=== PATIENT | male | born 1940 | race Caucasian/White ===

== ENCOUNTER 2017-08-21 15:23 | Inpatient (IN) | payer MEDICARE, MEDICAID ==
--- NOTE | 2017-08-21 15:32 | ED Physician Chart ---
ED Chief Complaint/HPI - Patient Information Date Seen:: 08/21/17 Time Seen:: 15:20 Chief Complaint:: Agitation History of Present Illness:: onset x 2 days of agitation and aggressive behavior; no report of SIs, H/As, trauma, neck pain, C/P, SOB, Abd. Pain, A/N/V/D/C, fever, chills, or urinary s/s Historian:: Patient, EMS Review:: Nurse's Note Reviewed, Old Chart Reviewed, EMS run form Reviewed ED Review of Systems - Review of Systems General/Constitutional: No fever, No chills, No weight loss, No weakness, No diaphoresis, No edema, No loss of appetite Skin: No skin lesions, No rash, No bruising Head: No headache, No light-headedness Eyes: No loss of vision, No pain, No diplopia ENT: No earache, No nasal drainage, No sore throat, No tinnitus Neck: No neck pain, No swelling, No thyromegaly, No stiffness, No mass noted Cardio Vascular: No chest pain, No palpitations, No PND, No orthopnea, No edema Pulmonary: No SOB, No cough, No sputum, No wheezing GI: No nausea, No vomiting, No diarrhea, No pain, No melena, No hematochezia, No constipation, No hematemesis G/U: No dysuria, No frequency, No hematuria, No nacturia Musculoskeletal: No bone or joint pain, No back pain, No muscle pain Endocrine: No polyuria, No polydipsia Psychiatric: Prior psych history, Depression, Anxiety, No suicidal ideation, No homicidal ideation, No auditory hallucination, No visual hallucination Hematopoietic: No bruising, No lymphadenopathy Allergic/Immuno: No urticaria, No angioedema Neurological: No syncope, Focal symptoms, No weakness, No paresthesia, No headache, No seizure, No dizziness, Confusion, No vertigo ED Past Medical History - Past Medical History Obtainable: Yes Past Medical History: HTN, CVA/TIA, Dyslipidemia, Dementia, Other (Colon CA) Family History: Diabetes Melitus, HTN Social History: Non Smoker, No Alcohol, No Drug Use, Single, Care Facility Surgical History: other (Colostomy) Psychiatricy History: Depression, Bipolar, Dementia Medication: Reviewed Family Medical History - Family Member Mother Age: 94 Ethnicity: Non- Living Status: Hx Family Cancer: Yes ED Physical Exam - Physical Examination General/Constitutional: Awake, Well-developed, well-nourished, Alert, No distress, GCS 15, Non-toxic appearing, Ambulatory Head: Atraumatic Eyes: Lids, conjuctiva normal, PERRL, EOMI Skin: Nl inspection, No rash, No skin lesions, No ecchymosis, Well hydrated, No lymphadenopathy ENMT: External ears, nose nl, TM canals nl, Nasal exam nl, Lips, teeth, gums nl , Oropharynx nl, Tonsils nl Neck: Nontender, Full ROM w/o pain, No JVD, No nuchal rigidity, No bruit, No mass, No stridor Respiratory: Nl effort/Exclusion, Clear to Auscultation, No Wheeze/Rhonchi/Rales Cardio Vascular: No murmur, gallop, rubs, NL S1 S2, Carotid/Femoral/Distal pulses equal bilaterally Other Cardio Vascular comments:: Irregular Irregular Rhythm GI: No tenderness/rebounding/guarding, No organomegaly, No hernia, Normal BS's, Nondistended, No mass/bruits, No McBurney tenderness : No CVA tenderness Extremities: No tenderness or effusion, Full ROM, normal strength in all extremities, No edema, Normal digits & nails Neuro/Psych: DTR's symmetric, Normal sensory exam, Normal motor strength, Mood normal, Normal gait, No focal deficits Other Neuro/Psych comments:: Disoriented and Confused; no SIs; + Psychomotor Agitation Misc: Normal back, No paraspinal tenderness ED Labs/Radiology/EKG Results - Lab Results Comments:: unremarkable - EKG Interpretations EKG Time:: 15:56 Rate & Rhythm: 127; Atrial Fibrillation Comments:: non-specific st-t changes ED Septic Shock - . Is Septic Shock (SBP<90, OR Lactate>4 mmol\L) present?: No ED Reassessment (Disposition) - Reassessment Reassessment Condition:: Improved - Diagnosis Diagnosis:: Agitation; Bipolar Disorder; Depression; Dementia - Aftercare/Follow up Instructions Aftercare/Follow-Up Instructions:: Counseled pt regarding lab results/diagnosis & need follow up, Counseled pt & family regarding lab results/diagnosis & need follow up - Patient Disposition Discharge/Transfer:: Acute Care w/in this hosp Admitted to:: [facility] Condition at Disposition:: Stable, Improved
[2017-08-21 16:01] LABS: % EOSINOPHILS 0.6 % (0.0-5.0); % LYMPHOCYTES 18.2 % (20.0-50.0); % MONOCYTES 12.5 % (2.0-10.0); % NEUTROPHILS 68.7 % (40.0-80.0); HEMATOCRIT 31.6 % (41.0-60); HEMOGLOBIN 10.7 gm/dL (12-16); MEAN CORPUSCULAR HEMOGLOBIN 28.6 pg (27.0-31.0); MEAN CORPUSCULAR HGB CONC 33.7 pg (28.0-36.0); MEAN PLATELET VOLUME 9.3 fl; MONOCYTE ABSOLUTE 0.7 Th/cmm (0.3-1.0); NEUTROPHILE ABSOLUTE 3.9 Th/cmm (1.8-8.0); PLATELET COUNT 228 Th/cmm (150-400); RED BLOOD COUNT 3.72 Mil/cmm (3.80-5.80); RED CELL DISTRIBUTION WIDTH 18.2 % (11.5-20.0); WHITE BLOOD COUNT 5.6 Th/cmm (4.8-10.8)
[2017-08-21 16:17] LABS: ALB/GLOB RATIO 1.8 (1.0-1.8); ALBUMIN 3.9 gm/dL (4.2-5.5); ALKALINE PHOSPHATASE 78 U/L (34-104); ANION GAP 12.2 (7.0-16.0); BILIRUBIN,TOTAL 1.9 mg/dL (0.3-1.0); BUN - UREA NITROGEN 28 mg/dL (7-25); CALCIUM SERUM 9.9 mg/dL (8.6-10.3); CARBON DIOXIDE 18.4 mEq/L (21.0-31.0); CHLORIDE 109 mEq/L (98-107); CHOLESTEROL 111 mg/dL (<200); CREATININE - SERUM 1.7 mg/dL (0.7-1.3); GLUCOSE 104 mg/dL (70-105); HDL -HIGH DENSITY LIPOPROTEIN 48 mg/dL (23-92); POTASSIUM SERUM 4.6 mEq/L (3.5-5.1); SGOT 16 U/L (13-39); SGPT/ALT 8 U/L (7-52); SODIUM SERUM 135 mEq/L (136-145); TOTAL PROTEIN,SERUM 6.1 gm/dL (6.0-8.3); TRIGLYCERIDES 91 mg/dL (<150)
[2017-08-21 16:26] LABS: ACETAMINOPHEN < 10.0 ug/mL (10.0-30.0); SALICYLATES (ASPIRIN) < 25.0 mg/L (30.0-100.0)
[2017-08-21 17:10] LABS: URINE MICROSCOPIC INDICATED? YES; URINE SOURCE CLEAN C
[2017-08-21 17:16] LABS: URINE BILIRUBIN NEGATIVE (NEGATIVE); URINE BLOOD NEGATIVE (NEGATIVE); URINE GLUCOSE (UA) NEGATIVE (NEGATIVE); URINE KETONE NEGATIVE (NEGATIVE); URINE LEUKOCYTE ESTERASE NEGATIVE (NEGATIVE); URINE NITRATE NEGATIVE (NEGATIVE); URINE PH 5.5 (4.6 - 8.0); URINE PROTEIN NEGATIVE (NEGATIVE); URINE UROBILINOGEN 0.2 E.U./dL (0.2 - 1.0)
[2017-08-21 17:17] LABS: URINE CLARITY CLEAR (CLEAR); URINE COLOR YELLOW
[2017-08-21 17:21] LABS: URINE BACTERIA NONE SEEN /hpf (NONE SEEN); URINE EPITHELIAL CELLS NONE SEEN /lpf (FEW); URINE RBC NONE SEEN /hpf (0-5); URINE WBC NONE SEEN /hpf (0-5)
[2017-08-21 17:27] LABS: AMPHETAMINE URINE NEGATIVE (NEGATIVE); BARBITURATES URINE NEGATIVE (NEGATIVE); BENZODIAZEPINES QUAL URINE NEGATIVE (NEGATIVE); CANNABINOID THC NEGATIVE (NEGATIVE); COCAINE METABOLITE QUAL URINE NEGATIVE (NEGATIVE); METHADONE URINE NEGATIVE (NEGATIVE); METHAMPHETAMINES QUAL URINE NEGATIVE (NEGATIVE); OPIATES (MORPHINE) QUAL. URINE NEGATIVE (NEGATIVE); PHENCYCLIDINE (PCP) URINE NEGATIVE (NEGATIVE); TRICYCLICS (TCA) QUAL. URINE NEGATIVE (NEGATIVE)
[2017-08-21 21:59] LABS: A1C % 5.7 % (4.0-6.0)
[2017-08-21 22:24] VITALS: BP 112/75
[2017-08-21] MEDS ORDERED: Magnesium Hydroxide (MOM) 30 mL UDC PO PRN (22:35)
[2017-08-22] MEDS ORDERED: SACUBITRIL PO SCH (09:00)
[2017-08-22] MEDS ORDERED: VALSARTAN PO SCH (09:00)
[2017-08-22] MEDS: Pantoprazole 40 mg EC Tab PO SCH (16:41)
--- NOTE | 2017-08-22 20:20 | History & Physical ---
ADMIT DATE: HISTORY OF PRESENT ILLNESS: This is a 77-year-old male with long history of hypertension, hyperlipidemia, paroxysmal atrial fibrillation, chronic anemia, dementia, CA of colon, benign prostatic hypertrophy, admitted to [facility] under Dr. Flores's service for treatment. The patient has been very psychotic. No chest pain, no shortness of breath, no fever, no chills. PAST MEDICAL HISTORY: Significant for hypertension, paroxysmal atrial fibrillation, chronic anemia, CA of colon, dementia, hyperlipidemia, benign prostatic hypertrophy. PAST SURGICAL HISTORY: Hemicolectomy with colostomy placement. ALLERGIES: HE IS ALLERGIC TO FLOMAX, NORVASC, LISINOPRIL, LORATADINE. SOCIAL HISTORY: No smoking, no alcohol, no drug. FAMILY HISTORY: Noncontributory. REVIEW OF SYSTEMS: RENAL SYSTEM: No history of chronic renal disorder. CARDIOVASCULAR SYSTEM: History of hypertension, atrial fibrillation. ENDOCRINE SYSTEM: No diabetes or thyroid problem. GASTROINTESTINAL SYSTEM: No upper or lower gastrointestinal bleed. He has history of CA of colon and bowel resection with colostomy placement. MUSCULOSKELETAL SYSTEM: No muscular dystrophy. HEMATOLOGIC SYSTEM: He has chronic anemia. GENITOURINARY SYSTEM: He has benign prostatic hypertrophy. PHYSICAL EXAMINATION: GENERAL: He is awake, alert, mildly confused. VITAL SIGNS: His temperature is 98.4, heart rate 94, blood pressure 119/60. HEENT: Normocephalic. Pupils reactive to light and accommodation. Sclerae clear. NECK: Supple. Negative for lymphadenopathy, JVD or bruit. CHEST: Bilaterally normal. No rales, rhonchi or wheezing. HEART: S1, S2 normal. No murmur, gallop or rub. ABDOMEN: Soft, bowel sounds positive. EXTREMITIES: No edema. NEUROLOGIC: He is awake, alert, mildly confused. No focal, motor or sensory deficit. LABORATORY DATA: White blood is 5.6, hemoglobin 10.7, hematocrit 31.6, platelets were 228. Sodium 135, potassium 4.6, BUN 28, creatinine 0.7. ASSESSMENT: 1. Hypertension. 2. Atrial fibrillation. 3. Anemia. 4. Hyperlipidemia. 5. Benign prostatic hypertrophy. 6. Dementia. PLAN: The patient in the hospital under Dr. Flores's service. MEDICAL PROBLEMS TO BE ADDRESSED DURING HOSPITALIZATION: Dementia, psychosis. MEDICAL PROBLEM TO BE ADDRESSED AT DISCHARGE: Hypertension, anemia, benign prostatic hypertrophy, hyperlipidemia. The patient is medically stable for activity. Thank you, Dr. Flores, for asking me to see your patient. JOB# [id number]
--- NOTE | 2017-08-23 00:32 | Psychosocial Evaluation ---
DATE OF SERVICE: 08/22/2017 JUSTIFICATION FOR HOSPITALIZATION: Agitation, aggressive behaviors and suicidal. CHIEF COMPLAINT: "My son wants to have me dumped, I was suicidal." HISTORY OF PRESENT ILLNESS: A 77-year-old male who apparently was making some suicidal gestures at [place], brought in, states he is schizophrenic, depressed, upset with son, fixated on son, talking about losing his daniel in God, talking about "traditional religions", jumping from one topic to next, difficult to redirect, not a good historian, but states he is depressed and hopeless. PAST PSYCHIATRIC HISTORY: He notes he has seen psychiatrists in the past. He states he has schizophrenia and depression. FAMILY HISTORY: Noncontributory. SOCIAL HISTORY: Born in [place], [place], after 31 years of marriage. in 1998. States he has a son. Also notes that he had a daughter, but daughter in infancy. Denies drugs. No alcohol, no tobacco. Currently residing at [place]. MEDICATIONS: Reviewed. MEDICAL HISTORY: Reviewed. MENTAL STATUS EXAMINATION: Stated age, fair eye contact. Speech highly pressured, rambling. Mood: "Not good". Affect upset. Thought processes were disorganized, tangential, highly difficult to control the conversation. The patient is suicidal. No HI. Seems to be paranoid and delusional. Insight and judgment: Diminished. PROVISIONAL DIAGNOSES: Schizophrenia, mood, unspecified. UNDER MEDICAL: Please see full H and P. ESTIMATED LENGTH OF STAY: 5-7 days. ASSESSMENT: The patient is requiring inpatient hospitalization, paranoid, suicidal. PLAN: We will initiate antipsychotic medications. TREATMENT PLAN: Includes group as well as milieu therapy. CONDITIONS FOR DISCHARGE: Improved mood, improved affect, cessation of any SI, better coping, better control of any psychotic symptoms. JOB# [id number]
[2017-08-23] MEDS: Pantoprazole 40 mg EC Tab PO SCH (06:34)
--- NOTE | 2017-08-23 20:02 | Internal Medicine Prog Note ---
Internal Medicine Subjective - Subjective Service Date: 08/23/17 Patient seen and examined:: with staff Patient is:: awake, verbal, talking, confused Per staff patient has:: no adverse event (HE DENIES ANY PAIN OR SOB) Internal Medicine Objective - Results Result Diagrams: 08/21/17 15:35 08/21/17 15:35 Recent Labs: Laboratory Last Values WBC 5.6 Th/cmm (4.8-10.8) 08/21/17 15:35 RBC 3.72 Mil/cmm (3.80-5.80) L 08/21/17 15:35 Hgb 10.7 gm/dL (12-16) L 08/21/17 15:35 Hct 31.6 % (41.0-60) L 08/21/17 15:35 MCV 85.0 fl (80-99) 08/21/17 15:35 MCH 28.6 pg (27.0-31.0) 08/21/17 15:35 MCHC Differential 33.7 pg (28.0-36.0) 08/21/17 15:35 RDW 18.2 % (11.5-20.0) 08/21/17 15:35 Plt Count 228 Th/cmm (150-400) 08/21/17 15:35 MPV 9.3 fl 08/21/17 15:35 Neutrophils % 68.7 % (40.0-80.0) 08/21/17 15:35 Lymphocytes % 18.2 % (20.0-50.0) L 08/21/17 15:35 Monocytes % 12.5 % (2.0-10.0) H 08/21/17 15:35 Eosinophils % 0.6 % (0.0-5.0) 08/21/17 15:35 Basophils % 0.0 % (0.0-2.0) 08/21/17 15:35 Sodium 135 mEq/L (136-145) L 08/21/17 15:35 Potassium 4.6 mEq/L (3.5-5.1) 08/21/17 15:35 Chloride 109 mEq/L (98-107) H 08/21/17 15:35 Carbon Dioxide 18.4 mEq/L (21.0-31.0) L 08/21/17 15:35 Anion Gap 12.2 (7.0-16.0) 08/21/17 15:35 BUN 28 mg/dL (7-25) H 08/21/17 15:35 Creatinine 1.7 mg/dL (0.7-1.3) H 08/21/17 15:35 Est GFR ( Amer) TNP 08/21/17 15:35 Est GFR (Non-Af Amer) TNP 08/21/17 15:35 BUN/Creatinine Ratio 16.5 08/21/17 15:35 Glucose 104 mg/dL (70-105) 08/21/17 15:35 Hemoglobin A1c % 5.7 % (4.0-6.0) 08/21/17 15:35 Calcium 9.9 mg/dL (8.6-10.3) 08/21/17 15:35 Total Bilirubin 1.9 mg/dL (0.3-1.0) H 08/21/17 15:35 AST 16 U/L (13-39) 08/21/17 15:35 ALT 8 U/L (7-52) 08/21/17 15:35 Alkaline Phosphatase 78 U/L (34-104) 08/21/17 15:35 Total Protein 6.1 gm/dL (6.0-8.3) 08/21/17 15:35 Albumin 3.9 gm/dL (4.2-5.5) L 08/21/17 15:35 Globulin 2.2 gm/dL 08/21/17 15:35 Albumin/Globulin Ratio 1.8 (1.0-1.8) 08/21/17 15:35 Triglycerides 91 mg/dL (<150) 08/21/17 15:35 Cholesterol 111 mg/dL (<200) 08/21/17 15:35 LDL Cholesterol Direct 53 mg/dL (75-193) L 08/21/17 15:35 HDL Cholesterol 48 mg/dL (23-92) 08/21/17 15:35 TSH 0.55 uIU/ml (0.34-5.60) 08/21/17 15:35 Urine Source CLEAN C 08/21/17 16:44 Urine Color YELLOW 08/21/17 16:44 Urine Clarity CLEAR (CLEAR) 08/21/17 16:44 Urine pH 5.5 (4.6 - 8.0) 08/21/17 16:44 Ur Specific [place] 1.015 (1.005-1.030) 08/21/17 16:44 Urine Protein NEGATIVE mg/dL (NEGATIVE) 08/21/17 16:44 Urine Glucose (UA) NEGATIVE mg/dL (NEGATIVE) 02 16:44 Urine Ketones NEGATIVE mg/dL (NEGATIVE) 02 16:44 Urine Blood NEGATIVE (NEGATIVE) 02 16:44 Urine Nitrate NEGATIVE (NEGATIVE) 08/21/17 16:44 Urine Bilirubin NEGATIVE (NEGATIVE) 02 16:44 Urine Urobilinogen 0.2 E.U./dL (0.2 - 1.0) 02 16:44 Ur Leukocyte Esterase NEGATIVE (NEGATIVE) 08/21/17 16:44 Urine RBC NONE SEEN /hpf (0-5) 02 16:44 Urine WBC NONE SEEN /hpf (0-5) 02 16:44 Ur Epithelial Cells NONE SEEN /lpf (FEW) 08/21/17 16:44 Urine Bacteria NONE SEEN /hpf (NONE SEEN) 08/21/17 16:44 Salicylates < 25.0 mg/L (30.0-100.0) L 08/21/17 15:35 Urine Opiates Screen NEGATIVE (NEGATIVE) 08/21/17 16:44 Urine Methadone Screen NEGATIVE (NEGATIVE) 08/21/17 16:44 Acetaminophen < 10.0 ug/mL (10.0-30.0) L 08/21/17 15:35 Ur Barbiturates Screen NEGATIVE (NEGATIVE) 08/21/17 16:44 Ur Tricyclics Screen NEGATIVE (NEGATIVE) 08/21/17 16:44 Ur Phencyclidine Scrn NEGATIVE (NEGATIVE) 08/21/17 16:44 Amphetamines Screen NEGATIVE (NEGATIVE) 08/21/17 16:44 U Methamphetamines Scrn NEGATIVE (NEGATIVE) 08/21/17 16:44 U Benzodiazepines Scrn NEGATIVE (NEGATIVE) 08/21/17 16:44 U Cocaine Metab Screen NEGATIVE (NEGATIVE) 08/21/17 16:44 U Cannabinoids Screen NEGATIVE (NEGATIVE) 08/21/17 16:44 Ethyl Alcohol < 10 mg/dL (0-10) 08/21/17 15:35 RPR NONREACTIVE (NONREACTIVE) 08/21/17 15:35 - Physical Exam Vitals and I&O: Vital Signs Temp 97.4 F 08/23/17 14:00 Pulse 88 08/23/17 17:31 Resp 18 08/23/17 14:00 BP 105/61 08/23/17 17:31 Pulse Ox 97 08/23/17 14:00 Intake & Output 08/23/17 08/23/1718 06:59 18:59 06:59 Intake Total 240 1800 Balance 240 1800 Intake: Oral 240 1800 Other: # Voids 1 4 Active Medications: Current Medications Acetaminophen (Tylenol) 650 mg PO Q4HR PRN PRN Reason: Pain or Fever >101 Stop: 10/20/17 22:34 Atorvastatin Calcium (Lipitor) 80 mg PO HS ELVIN PRN Reason: Protocol Stop: 10/21/17 20:59 Last Admin: 08/22/17 21:40 Dose: 80 mg Docusate Sodium (Colace) 100 mg PO DAILY PRN PRN Reason: Constipation Stop: 10/20/17 22:34 Finasteride (Proscar) 5 mg PO DAILY ELVIN PRN Reason: Protocol Stop: 10/21/17 08:59 Last Admin: 08/23/17 09:15 Dose: 5 mg Lorazepam (Ativan) 0.5 mg PO Q4HR PRN; Protocol PRN Reason: Anxiety Stop: 09/20/17 20:14 Last Admin: 08/23/17 09:15 Dose: 0.5 mg Magnesium Hydroxide (Milk Of Magnesia) 30 ml PO DAILY PRN PRN Reason: Constipation Stop: 10/20/17 22:34 Metoprolol Tartrate (Lopressor) 50 mg PO BID ELVIN Stop: 10/21/17 08:59 Last Admin: 08/23/17 17:31 Dose: Not Given Miscellaneous (Sacubitril/Valsartan [Entresto 49 Mg-51 Mg Tablet]) 1 tab PO BID ELVIN Stop: 10/21/17 08:59 Pantoprazole Sodium (Protonix) 40 mg PO QDAC ELVIN Stop: 10/21/17 16:29 Last Admin: 08/23/17 06:34 Dose: 40 mg Risperidone (Risperdal) 0.5 mg PO BID ELVIN PRN Reason: Protocol Stop: 10/21/17 16:59 Last Admin: 08/23/17 17:31 Dose: 0.5 mg Rivaroxaban (Xarelto) 15 mg PO DAILY [facility] Stop: 10/21/17 16:59 Last Admin: 08/23/17 09:14 Dose: 15 mg Spironolactone (Aldactone) 25 mg PO DAILY [facility] Stop: 10/21/17 08:59 Last Admin: 08/23/17 09:15 Dose: 25 mg Zolpidem Tartrate (Ambien) 5 mg PO HS PRN PRN Reason: Insomnia Stop: 10/20/17 22:40 Last Admin: 08/22/17 21:40 Dose: 5 mg General: demented HEENT: NC/AT, PERRLA, EOMI, anicteric sclerae, throat clear Neck: Supple, No JVD, No thyromegaly, No LAD Lungs: CTAB Cardiovascular: RRR, Normal S1, Normal S2, without murmur Abdomen: non-tender, non-distended Extremities: clear Neurological: no change Internal Medicine Assmt/Plan - Assessment Assessment: 1.A.FIB. 2.HYPERLIPIDEMIA. 3.ANEMIA. 4.BPH. 5.DEMENTIA - Plan Plan: CONTINUE ON CURRENT MEDICATION AND DIET.
--- NOTE | 2017-08-23 23:38 | Progress Notes ---
DATE: 08/23/2017 SUBJECTIVE: The patient in the hospital, agitated, aggressive behavior, suicidal. On [id number], the patient remains irritable, upset, refusing interview, does not want to talk to me, told me yesterday he was suicidal and was paranoid. He remains quite paranoid and occlusive. Staff noting he remains at times unruly requiring redirection, prompting. MEDICATIONS: Reviewed including doses and frequencies. ASSESSMENT: The patient remains symptomatic, still with ongoing psychotic symptoms, highly depressed, withdrawn. PLAN: We will continue to monitor. Continue antipsychotic medications. We will attempt to follow up when the patient more amenable to interview. JOB# [id number]
--- NOTE | 2017-08-24 07:51 | Progress Notes ---
DATE: 08/24/2017 SUBJECTIVE: The patient admitted in the hospital. He was apparently quite agitated, suicidal, paranoid, told me that he was paranoid. On [id number], the patient states he feels calmer. He states he is in touch with the son and his son told him that he can go back home. This has not been confirmed. I called son yesterday, his voice mailbox was full. I was unable to leave a message. The patient still rambling, still isolative, but no longer talking about suicide as much. He states he has a diagnosis of Parkinson's disease, but I am not seeing any symptoms. ASSESSMENT: The patient remains symptomatic, still rambling, still with evidence of disorganized thought processes. PLAN: We will again try to contact son. Continue low dose Risperdal. The patient does seem to be showing some improvement. JOB# [id number]
[2017-08-24] MEDS: Pantoprazole 40 mg EC Tab PO SCH (09:35)
--- NOTE | 2017-08-24 19:37 | Internal Medicine Prog Note ---
Internal Medicine Subjective - Subjective Service Date: 08/24/17 Patient seen and examined:: with staff Patient is:: awake, verbal, talking, confused Per staff patient has:: no adverse event (HE DENIES ANY PAIN OR SOB) Internal Medicine Objective - Results Result Diagrams: 08/21/17 15:35 08/21/17 15:35 Recent Labs: Laboratory Last Values WBC 5.6 Th/cmm (4.8-10.8) 08/21/17 15:35 RBC 3.72 Mil/cmm (3.80-5.80) L 08/21/17 15:35 Hgb 10.7 gm/dL (12-16) L 08/21/17 15:35 Hct 31.6 % (41.0-60) L 08/21/17 15:35 MCV 85.0 fl (80-99) 08/21/17 15:35 MCH 28.6 pg (27.0-31.0) 08/21/17 15:35 MCHC Differential 33.7 pg (28.0-36.0) 08/21/17 15:35 RDW 18.2 % (11.5-20.0) 08/21/17 15:35 Plt Count 228 Th/cmm (150-400) 08/21/17 15:35 MPV 9.3 fl 08/21/17 15:35 Neutrophils % 68.7 % (40.0-80.0) 08/21/17 15:35 Lymphocytes % 18.2 % (20.0-50.0) L 08/21/17 15:35 Monocytes % 12.5 % (2.0-10.0) H 08/21/17 15:35 Eosinophils % 0.6 % (0.0-5.0) 08/21/17 15:35 Basophils % 0.0 % (0.0-2.0) 08/21/17 15:35 Sodium 135 mEq/L (136-145) L 08/21/17 15:35 Potassium 4.6 mEq/L (3.5-5.1) 08/21/17 15:35 Chloride 109 mEq/L (98-107) H 08/21/17 15:35 Carbon Dioxide 18.4 mEq/L (21.0-31.0) L 08/21/17 15:35 Anion Gap 12.2 (7.0-16.0) 08/21/17 15:35 BUN 28 mg/dL (7-25) H 08/21/17 15:35 Creatinine 1.7 mg/dL (0.7-1.3) H 08/21/17 15:35 Est GFR ( Amer) TNP 08/21/17 15:35 Est GFR (Non-Af Amer) TNP 08/21/17 15:35 BUN/Creatinine Ratio 16.5 08/21/17 15:35 Glucose 104 mg/dL (70-105) 08/21/17 15:35 Hemoglobin A1c % 5.7 % (4.0-6.0) 08/21/17 15:35 Calcium 9.9 mg/dL (8.6-10.3) 08/21/17 15:35 Total Bilirubin 1.9 mg/dL (0.3-1.0) H 08/21/17 15:35 AST 16 U/L (13-39) 08/21/17 15:35 ALT 8 U/L (7-52) 08/21/17 15:35 Alkaline Phosphatase 78 U/L (34-104) 08/21/17 15:35 Total Protein 6.1 gm/dL (6.0-8.3) 08/21/17 15:35 Albumin 3.9 gm/dL (4.2-5.5) L 08/21/17 15:35 Globulin 2.2 gm/dL 08/21/17 15:35 Albumin/Globulin Ratio 1.8 (1.0-1.8) 08/21/17 15:35 Triglycerides 91 mg/dL (<150) 08/21/17 15:35 Cholesterol 111 mg/dL (<200) 08/21/17 15:35 LDL Cholesterol Direct 53 mg/dL (75-193) L 08/21/17 15:35 HDL Cholesterol 48 mg/dL (23-92) 08/21/17 15:35 TSH 0.55 uIU/ml (0.34-5.60) 08/21/17 15:35 Urine Source CLEAN C 08/21/17 16:44 Urine Color YELLOW 08/21/17 16:44 Urine Clarity CLEAR (CLEAR) 08/21/17 16:44 Urine pH 5.5 (4.6 - 8.0) 08/21/17 16:44 Ur Specific [place] 1.015 (1.005-1.030) 08/21/17 16:44 Urine Protein NEGATIVE mg/dL (NEGATIVE) 08/21/17 16:44 Urine Glucose (UA) NEGATIVE mg/dL (NEGATIVE) 02 16:44 Urine Ketones NEGATIVE mg/dL (NEGATIVE) 02 16:44 Urine Blood NEGATIVE (NEGATIVE) 02 16:44 Urine Nitrate NEGATIVE (NEGATIVE) 08/21/17 16:44 Urine Bilirubin NEGATIVE (NEGATIVE) 02 16:44 Urine Urobilinogen 0.2 E.U./dL (0.2 - 1.0) 02 16:44 Ur Leukocyte Esterase NEGATIVE (NEGATIVE) 08/21/17 16:44 Urine RBC NONE SEEN /hpf (0-5) 02 16:44 Urine WBC NONE SEEN /hpf (0-5) 02 16:44 Ur Epithelial Cells NONE SEEN /lpf (FEW) 08/21/17 16:44 Urine Bacteria NONE SEEN /hpf (NONE SEEN) 08/21/17 16:44 Salicylates < 25.0 mg/L (30.0-100.0) L 08/21/17 15:35 Urine Opiates Screen NEGATIVE (NEGATIVE) 08/21/17 16:44 Urine Methadone Screen NEGATIVE (NEGATIVE) 08/21/17 16:44 Acetaminophen < 10.0 ug/mL (10.0-30.0) L 08/21/17 15:35 Ur Barbiturates Screen NEGATIVE (NEGATIVE) 08/21/17 16:44 Ur Tricyclics Screen NEGATIVE (NEGATIVE) 08/21/17 16:44 Ur Phencyclidine Scrn NEGATIVE (NEGATIVE) 08/21/17 16:44 Amphetamines Screen NEGATIVE (NEGATIVE) 08/21/17 16:44 U Methamphetamines Scrn NEGATIVE (NEGATIVE) 08/21/17 16:44 U Benzodiazepines Scrn NEGATIVE (NEGATIVE) 08/21/17 16:44 U Cocaine Metab Screen NEGATIVE (NEGATIVE) 08/21/17 16:44 U Cannabinoids Screen NEGATIVE (NEGATIVE) 08/21/17 16:44 Ethyl Alcohol < 10 mg/dL (0-10) 08/21/17 15:35 RPR NONREACTIVE (NONREACTIVE) 08/21/17 15:35 - Physical Exam Vitals and I&O: Vital Signs Temp 97.8 F 08/24/17 16:46 Pulse 100 08/24/17 16:55 Resp 20 08/24/17 16:46 BP 104/58 08/24/17 16:55 Pulse Ox 97 08/24/17 16:46 Intake & Output 08/24/17 08/24/17 08/25/17 06:59 18:59 06:59 Intake Total 120 2040 Balance 120 2040 Intake: Oral 120 2040 Other: # Voids 3 4 Active Medications: Current Medications Acetaminophen (Tylenol) 650 mg PO Q4HR PRN PRN Reason: Pain or Fever >101 Stop: 10/20/17 22:34 Atorvastatin Calcium (Lipitor) 80 mg PO HS ELVIN PRN Reason: Protocol Stop: 10/21/17 20:59 Last Admin: 08/23/17 20:37 Dose: 80 mg Docusate Sodium (Colace) 100 mg PO DAILY PRN PRN Reason: Constipation Stop: 10/20/17 22:34 Finasteride (Proscar) 5 mg PO DAILY ELVIN PRN Reason: Protocol Stop: 10/21/17 08:59 Last Admin: 08/24/17 09:29 Dose: 5 mg Lorazepam (Ativan) 0.5 mg PO Q4HR PRN; Protocol PRN Reason: Anxiety Stop: 09/20/17 20:14 Last Admin: 08/23/17 09:15 Dose: 0.5 mg Magnesium Hydroxide (Milk Of Magnesia) 30 ml PO DAILY PRN PRN Reason: Constipation Stop: 10/20/17 22:34 Metoprolol Tartrate (Lopressor) 50 mg PO BID [facility] Stop: 10/21/17 08:59 Last Admin: 08/24/17 16:55 Dose: 50 mg Miscellaneous (Sacubitril/Valsartan [Entresto 49 Mg-51 Mg Tablet]) 1 tab PO BID [facility] Stop: 10/21/17 08:59 Pantoprazole Sodium (Protonix) 40 mg PO QDAC [facility] Stop: 10/21/17 16:29 Last Admin: 08/24/17 09:35 Dose: 40 mg Risperidone (Risperdal) 0.5 mg PO BID ELVIN PRN Reason: Protocol Stop: 10/21/17 16:59 Last Admin: 08/24/17 16:55 Dose: 0.5 mg Rivaroxaban (Xarelto) 15 mg PO DAILY [facility] Stop: 10/21/17 16:59 Last Admin: 08/24/17 09:30 Dose: 15 mg Spironolactone (Aldactone) 25 mg PO DAILY [facility] Stop: 10/21/17 08:59 Last Admin: 08/24/17 09:30 Dose: 25 mg Zolpidem Tartrate (Ambien) 5 mg PO HS PRN PRN Reason: Insomnia Stop: 10/20/17 22:40 Last Admin: 08/22/17 21:40 Dose: 5 mg General: demented HEENT: NC/AT, PERRLA, EOMI, anicteric sclerae, throat clear Neck: Supple, No JVD, No thyromegaly, No LAD Lungs: CTAB Cardiovascular: RRR, Normal S1, Normal S2, without murmur Abdomen: non-tender, non-distended Extremities: clear Neurological: no change Internal Medicine Assmt/Plan - Assessment Assessment: 1.A.FIB. 2.HYPERLIPIDEMIA. 3.ANEMIA. 4.BPH. 5.DEMENTIA - Plan Plan: CONTINUE ON CURRENT MEDICATION AND DIET.
[2017-08-25] MEDS: Pantoprazole 40 mg EC Tab PO SCH (06:42)
--- NOTE | 2017-08-25 21:14 | Internal Medicine Prog Note ---
Internal Medicine Subjective - Subjective Service Date: 08/25/17 Patient seen and examined:: with staff Patient is:: awake, verbal, talking, confused Per staff patient has:: no adverse event (HE DENIES ANY PAIN OR SOB) Internal Medicine Objective - Results Result Diagrams: 08/21/17 15:35 08/21/17 15:35 Recent Labs: Laboratory Last Values WBC 5.6 Th/cmm (4.8-10.8) 08/21/17 15:35 RBC 3.72 Mil/cmm (3.80-5.80) L 08/21/17 15:35 Hgb 10.7 gm/dL (12-16) L 08/21/17 15:35 Hct 31.6 % (41.0-60) L 08/21/17 15:35 MCV 85.0 fl (80-99) 08/21/17 15:35 MCH 28.6 pg (27.0-31.0) 08/21/17 15:35 MCHC Differential 33.7 pg (28.0-36.0) 08/21/17 15:35 RDW 18.2 % (11.5-20.0) 08/21/17 15:35 Plt Count 228 Th/cmm (150-400) 08/21/17 15:35 MPV 9.3 fl 08/21/17 15:35 Neutrophils % 68.7 % (40.0-80.0) 08/21/17 15:35 Lymphocytes % 18.2 % (20.0-50.0) L 08/21/17 15:35 Monocytes % 12.5 % (2.0-10.0) H 08/21/17 15:35 Eosinophils % 0.6 % (0.0-5.0) 08/21/17 15:35 Basophils % 0.0 % (0.0-2.0) 08/21/17 15:35 Sodium 135 mEq/L (136-145) L 08/21/17 15:35 Potassium 4.6 mEq/L (3.5-5.1) 08/21/17 15:35 Chloride 109 mEq/L (98-107) H 08/21/17 15:35 Carbon Dioxide 18.4 mEq/L (21.0-31.0) L 08/21/17 15:35 Anion Gap 12.2 (7.0-16.0) 08/21/17 15:35 BUN 28 mg/dL (7-25) H 08/21/17 15:35 Creatinine 1.7 mg/dL (0.7-1.3) H 08/21/17 15:35 Est GFR ( Amer) TNP 08/21/17 15:35 Est GFR (Non-Af Amer) TNP 08/21/17 15:35 BUN/Creatinine Ratio 16.5 08/21/17 15:35 Glucose 104 mg/dL (70-105) 08/21/17 15:35 Hemoglobin A1c % 5.7 % (4.0-6.0) 08/21/17 15:35 Calcium 9.9 mg/dL (8.6-10.3) 08/21/17 15:35 Total Bilirubin 1.9 mg/dL (0.3-1.0) H 08/21/17 15:35 AST 16 U/L (13-39) 08/21/17 15:35 ALT 8 U/L (7-52) 08/21/17 15:35 Alkaline Phosphatase 78 U/L (34-104) 08/21/17 15:35 Total Protein 6.1 gm/dL (6.0-8.3) 08/21/17 15:35 Albumin 3.9 gm/dL (4.2-5.5) L 08/21/17 15:35 Globulin 2.2 gm/dL 08/21/17 15:35 Albumin/Globulin Ratio 1.8 (1.0-1.8) 08/21/17 15:35 Triglycerides 91 mg/dL (<150) 08/21/17 15:35 Cholesterol 111 mg/dL (<200) 08/21/17 15:35 LDL Cholesterol Direct 53 mg/dL (75-193) L 08/21/17 15:35 HDL Cholesterol 48 mg/dL (23-92) 08/21/17 15:35 TSH 0.55 uIU/ml (0.34-5.60) 08/21/17 15:35 Urine Source CLEAN C 08/21/17 16:44 Urine Color YELLOW 08/21/17 16:44 Urine Clarity CLEAR (CLEAR) 08/21/17 16:44 Urine pH 5.5 (4.6 - 8.0) 08/21/17 16:44 Ur Specific [place] 1.015 (1.005-1.030) 08/21/17 16:44 Urine Protein NEGATIVE mg/dL (NEGATIVE) 08/21/17 16:44 Urine Glucose (UA) NEGATIVE mg/dL (NEGATIVE) 02 16:44 Urine Ketones NEGATIVE mg/dL (NEGATIVE) 02 16:44 Urine Blood NEGATIVE (NEGATIVE) 02 16:44 Urine Nitrate NEGATIVE (NEGATIVE) 08/21/17 16:44 Urine Bilirubin NEGATIVE (NEGATIVE) 02 16:44 Urine Urobilinogen 0.2 E.U./dL (0.2 - 1.0) 02 16:44 Ur Leukocyte Esterase NEGATIVE (NEGATIVE) 08/21/17 16:44 Urine RBC NONE SEEN /hpf (0-5) 02 16:44 Urine WBC NONE SEEN /hpf (0-5) 02 16:44 Ur Epithelial Cells NONE SEEN /lpf (FEW) 08/21/17 16:44 Urine Bacteria NONE SEEN /hpf (NONE SEEN) 08/21/17 16:44 Salicylates < 25.0 mg/L (30.0-100.0) L 08/21/17 15:35 Urine Opiates Screen NEGATIVE (NEGATIVE) 08/21/17 16:44 Urine Methadone Screen NEGATIVE (NEGATIVE) 08/21/17 16:44 Acetaminophen < 10.0 ug/mL (10.0-30.0) L 08/21/17 15:35 Ur Barbiturates Screen NEGATIVE (NEGATIVE) 08/21/17 16:44 Ur Tricyclics Screen NEGATIVE (NEGATIVE) 08/21/17 16:44 Ur Phencyclidine Scrn NEGATIVE (NEGATIVE) 08/21/17 16:44 Amphetamines Screen NEGATIVE (NEGATIVE) 08/21/17 16:44 U Methamphetamines Scrn NEGATIVE (NEGATIVE) 08/21/17 16:44 U Benzodiazepines Scrn NEGATIVE (NEGATIVE) 08/21/17 16:44 U Cocaine Metab Screen NEGATIVE (NEGATIVE) 08/21/17 16:44 U Cannabinoids Screen NEGATIVE (NEGATIVE) 08/21/17 16:44 Ethyl Alcohol < 10 mg/dL (0-10) 08/21/17 15:35 RPR NONREACTIVE (NONREACTIVE) 08/21/17 15:35 - Physical Exam Vitals and I&O: Vital Signs Temp 98.1 F 08/25/17 20:26 Pulse 92 08/25/17 20:26 Resp 18 08/25/17 20:26 BP 108/63 08/25/17 20:26 Pulse Ox 95 08/25/17 20:26 Intake & Output 08/25/17 08/25/17 08/26/17 06:59 18:59 06:59 Intake Total 180 900 240 Balance 180 900 240 Intake: Oral 180 900 240 Other: # Voids 2 4 1 # Bowel Movements 1 1 Active Medications: Current Medications Acetaminophen (Tylenol) 650 mg PO Q4HR PRN PRN Reason: Pain or Fever >101 Stop: 10/20/17 22:34 Atorvastatin Calcium (Lipitor) 80 mg PO HS [facility] PRN Reason: Protocol Stop: 10/21/17 20:59 Last Admin: 08/25/17 20:54 Dose: 80 mg Docusate Sodium (Colace) 100 mg PO DAILY PRN PRN Reason: Constipation Stop: 10/20/17 22:34 Finasteride (Proscar) 5 mg PO DAILY [facility] PRN Reason: Protocol Stop: 10/21/17 08:59 Last Admin: 08/25/17 10:00 Dose: 5 mg Lorazepam (Ativan) 0.5 mg PO Q4HR PRN; Protocol PRN Reason: Anxiety Stop: 09/20/17 20:14 Last Admin: 08/23/17 09:15 Dose: 0.5 mg Magnesium Hydroxide (Milk Of Magnesia) 30 ml PO DAILY PRN PRN Reason: Constipation Stop: 10/20/17 22:34 Metoprolol Tartrate (Lopressor) 50 mg PO BID [facility] Stop: 10/21/17 08:59 Last Admin: 08/25/17 18:52 Dose: Not Given Miscellaneous (Sacubitril/Valsartan [Entresto 49 Mg-51 Mg Tablet]) 1 tab PO BID [facility] Stop: 10/21/17 08:59 Pantoprazole Sodium (Protonix) 40 mg PO QDAC [facility] Stop: 10/21/17 16:29 Last Admin: 08/25/17 06:42 Dose: 40 mg Risperidone (Risperdal) 0.5 mg PO BID [facility] PRN Reason: Protocol Stop: 10/21/17 16:59 Last Admin: 08/25/17 17:52 Dose: 0.5 mg Rivaroxaban (Xarelto) 15 mg PO DAILY [facility] Stop: 10/21/17 16:59 Last Admin: 08/25/17 10:00 Dose: 15 mg Spironolactone (Aldactone) 25 mg PO DAILY [facility] Stop: 10/21/17 08:59 Last Admin: 08/25/17 10:00 Dose: 25 mg Zolpidem Tartrate (Ambien) 5 mg PO HS PRN PRN Reason: Insomnia Stop: 10/20/17 22:40 Last Admin: 08/25/17 20:54 Dose: 5 mg General: demented HEENT: NC/AT, PERRLA, EOMI, anicteric sclerae, throat clear Neck: Supple, No JVD, No thyromegaly, No LAD Lungs: CTAB Cardiovascular: RRR, Normal S1, Normal S2, without murmur Abdomen: non-tender, non-distended Extremities: clear Neurological: no change Internal Medicine Assmt/Plan - Assessment Assessment: 1.A.FIB. 2.HYPERLIPIDEMIA. 3.ANEMIA. 4.BPH. 5.DEMENTIA - Plan Plan: CONTINUE ON CURRENT MEDICATION AND DIET.
[2017-08-26] MEDS: Pantoprazole 40 mg EC Tab PO SCH (06:50)
--- NOTE | 2017-08-26 07:45 | Progress Notes ---
DATE: 08/25/2017 SUBJECTIVE: The patient is currently in the hospital, he was apparently suicidal, paranoid, tried to walk into the traffic, still attesting to depressed mood. States he has no hope that he will be able to go back to the place he came from. He is still somewhat rambling on exam, seems somewhat confused and disoriented. His son called me. I will attempt to call the son again. The patient is very anxious, worried, states he did not sleep well last night. ASSESSMENT: The patient remains symptomatic, still rambling, seemingly disoriented, but denying any SI. PLAN: We will continue to monitor given his ongoing hopelessness and despair. There are really no overt safety concerns. [facility]# [id number]
--- NOTE | 2017-08-26 21:01 | Internal Medicine Prog Note ---
Internal Medicine Subjective - Subjective Service Date: 08/26/17 Patient seen and examined:: with staff Patient is:: awake, verbal, talking, confused Per staff patient has:: no adverse event (HE DENIES ANY PAIN OR SOB) Internal Medicine Objective - Results Result Diagrams: 08/21/17 15:35 08/21/17 15:35 Recent Labs: Laboratory Last Values WBC 5.6 Th/cmm (4.8-10.8) 08/21/17 15:35 RBC 3.72 Mil/cmm (3.80-5.80) L 08/21/17 15:35 Hgb 10.7 gm/dL (12-16) L 08/21/17 15:35 Hct 31.6 % (41.0-60) L 08/21/17 15:35 MCV 85.0 fl (80-99) 08/21/17 15:35 MCH 28.6 pg (27.0-31.0) 08/21/17 15:35 MCHC Differential 33.7 pg (28.0-36.0) 08/21/17 15:35 RDW 18.2 % (11.5-20.0) 08/21/17 15:35 Plt Count 228 Th/cmm (150-400) 08/21/17 15:35 MPV 9.3 fl 08/21/17 15:35 Neutrophils % 68.7 % (40.0-80.0) 08/21/17 15:35 Lymphocytes % 18.2 % (20.0-50.0) L 08/21/17 15:35 Monocytes % 12.5 % (2.0-10.0) H 08/21/17 15:35 Eosinophils % 0.6 % (0.0-5.0) 08/21/17 15:35 Basophils % 0.0 % (0.0-2.0) 08/21/17 15:35 Sodium 135 mEq/L (136-145) L 08/21/17 15:35 Potassium 4.6 mEq/L (3.5-5.1) 08/21/17 15:35 Chloride 109 mEq/L (98-107) H 08/21/17 15:35 Carbon Dioxide 18.4 mEq/L (21.0-31.0) L 08/21/17 15:35 Anion Gap 12.2 (7.0-16.0) 08/21/17 15:35 BUN 28 mg/dL (7-25) H 08/21/17 15:35 Creatinine 1.7 mg/dL (0.7-1.3) H 08/21/17 15:35 Est GFR ( Amer) TNP 08/21/17 15:35 Est GFR (Non-Af Amer) TNP 08/21/17 15:35 BUN/Creatinine Ratio 16.5 08/21/17 15:35 Glucose 104 mg/dL (70-105) 08/21/17 15:35 Hemoglobin A1c % 5.7 % (4.0-6.0) 08/21/17 15:35 Calcium 9.9 mg/dL (8.6-10.3) 08/21/17 15:35 Total Bilirubin 1.9 mg/dL (0.3-1.0) H 08/21/17 15:35 AST 16 U/L (13-39) 08/21/17 15:35 ALT 8 U/L (7-52) 08/21/17 15:35 Alkaline Phosphatase 78 U/L (34-104) 08/21/17 15:35 Total Protein 6.1 gm/dL (6.0-8.3) 08/21/17 15:35 Albumin 3.9 gm/dL (4.2-5.5) L 08/21/17 15:35 Globulin 2.2 gm/dL 08/21/17 15:35 Albumin/Globulin Ratio 1.8 (1.0-1.8) 08/21/17 15:35 Triglycerides 91 mg/dL (<150) 08/21/17 15:35 Cholesterol 111 mg/dL (<200) 08/21/17 15:35 LDL Cholesterol Direct 53 mg/dL (75-193) L 08/21/17 15:35 HDL Cholesterol 48 mg/dL (23-92) 08/21/17 15:35 TSH 0.55 uIU/ml (0.34-5.60) 08/21/17 15:35 Urine Source CLEAN C 08/21/17 16:44 Urine Color YELLOW 08/21/17 16:44 Urine Clarity CLEAR (CLEAR) 08/21/17 16:44 Urine pH 5.5 (4.6 - 8.0) 08/21/17 16:44 Ur Specific [place] 1.015 (1.005-1.030) 08/21/17 16:44 Urine Protein NEGATIVE mg/dL (NEGATIVE) 08/21/17 16:44 Urine Glucose (UA) NEGATIVE mg/dL (NEGATIVE) 02 16:44 Urine Ketones NEGATIVE mg/dL (NEGATIVE) 02 16:44 Urine Blood NEGATIVE (NEGATIVE) 02 16:44 Urine Nitrate NEGATIVE (NEGATIVE) 08/21/17 16:44 Urine Bilirubin NEGATIVE (NEGATIVE) 02 16:44 Urine Urobilinogen 0.2 E.U./dL (0.2 - 1.0) 02 16:44 Ur Leukocyte Esterase NEGATIVE (NEGATIVE) 08/21/17 16:44 Urine RBC NONE SEEN /hpf (0-5) 02 16:44 Urine WBC NONE SEEN /hpf (0-5) 02 16:44 Ur Epithelial Cells NONE SEEN /lpf (FEW) 08/21/17 16:44 Urine Bacteria NONE SEEN /hpf (NONE SEEN) 08/21/17 16:44 Salicylates < 25.0 mg/L (30.0-100.0) L 08/21/17 15:35 Urine Opiates Screen NEGATIVE (NEGATIVE) 08/21/17 16:44 Urine Methadone Screen NEGATIVE (NEGATIVE) 08/21/17 16:44 Acetaminophen < 10.0 ug/mL (10.0-30.0) L 08/21/17 15:35 Ur Barbiturates Screen NEGATIVE (NEGATIVE) 08/21/17 16:44 Ur Tricyclics Screen NEGATIVE (NEGATIVE) 08/21/17 16:44 Ur Phencyclidine Scrn NEGATIVE (NEGATIVE) 08/21/17 16:44 Amphetamines Screen NEGATIVE (NEGATIVE) 08/21/17 16:44 U Methamphetamines Scrn NEGATIVE (NEGATIVE) 08/21/17 16:44 U Benzodiazepines Scrn NEGATIVE (NEGATIVE) 08/21/17 16:44 U Cocaine Metab Screen NEGATIVE (NEGATIVE) 08/21/17 16:44 U Cannabinoids Screen NEGATIVE (NEGATIVE) 08/21/17 16:44 Ethyl Alcohol < 10 mg/dL (0-10) 08/21/17 15:35 RPR NONREACTIVE (NONREACTIVE) 08/21/17 15:35 - Physical Exam Vitals and I&O: Vital Signs Temp 97.7 F 08/26/17 20:14 Pulse 107 08/26/17 20:14 Resp 19 08/26/17 20:14 BP 97/55 08/26/17 20:14 Pulse Ox 96 08/26/17 20:14 Intake & Output 08/26/17 08/26/17 08/27/17 06:59 18:59 06:59 Intake Total 240 900 120 Balance 240 900 120 Intake: Oral 240 900 120 Other: # Voids 3 4 3 # Bowel Movements 1 1 1 Active Medications: Current Medications Acetaminophen (Tylenol) 650 mg PO Q4HR PRN PRN Reason: Pain or Fever >101 Stop: 10/20/17 22:34 Atorvastatin Calcium (Lipitor) 80 mg PO HS [facility] PRN Reason: Protocol Stop: 10/21/17 20:59 Last Admin: 08/25/17 20:54 Dose: 80 mg Docusate Sodium (Colace) 100 mg PO DAILY PRN PRN Reason: Constipation Stop: 10/20/17 22:34 Finasteride (Proscar) 5 mg PO DAILY [facility] PRN Reason: Protocol Stop: 10/21/17 08:59 Last Admin: 08/26/17 08:40 Dose: 5 mg Lorazepam (Ativan) 0.5 mg PO Q4HR PRN; Protocol PRN Reason: Anxiety Stop: 09/20/17 20:14 Last Admin: 08/23/17 09:15 Dose: 0.5 mg Magnesium Hydroxide (Milk Of Magnesia) 30 ml PO DAILY PRN PRN Reason: Constipation Stop: 10/20/17 22:34 Metoprolol Tartrate (Lopressor) 50 mg PO BID [facility] Stop: 10/21/17 08:59 Last Admin: 08/26/17 17:51 Dose: 50 mg Miscellaneous (Sacubitril/Valsartan [Entresto 49 Mg-51 Mg Tablet]) 1 tab PO BID [facility] Stop: 10/21/17 08:59 Pantoprazole Sodium (Protonix) 40 mg PO QDAC [facility] Stop: 10/21/17 16:29 Last Admin: 08/26/17 06:50 Dose: 40 mg Risperidone (Risperdal) 1 mg PO BID [facility] PRN Reason: Protocol Stop: 04/14/18 16:59 Last Admin: 08/26/17 17:52 Dose: 1 mg Rivaroxaban (Xarelto) 15 mg PO DAILY [facility] Stop: 10/21/17 16:59 Last Admin: 08/26/17 08:39 Dose: 15 mg Spironolactone (Aldactone) 25 mg PO DAILY [facility] Stop: 10/21/17 08:59 Last Admin: 08/26/17 08:40 Dose: 25 mg Zolpidem Tartrate (Ambien) 5 mg PO HS PRN PRN Reason: Insomnia Stop: 10/20/17 22:40 Last Admin: 08/25/17 20:54 Dose: 5 mg General: demented HEENT: NC/AT, PERRLA, EOMI, anicteric sclerae, throat clear Neck: Supple, No JVD, No thyromegaly, No LAD Lungs: CTAB Cardiovascular: RRR, Normal S1, Normal S2, without murmur Abdomen: non-tender, non-distended Extremities: clear Neurological: no change Internal Medicine Assmt/Plan - Assessment Assessment: 1.A.FIB. 2.HYPERLIPIDEMIA. 3.ANEMIA. 4.BPH. 5.DEMENTIA - Plan Plan: CONTINUE ON CURRENT MEDICATION AND DIET.
[2017-08-27] MEDS: Pantoprazole 40 mg EC Tab PO SCH (06:44)
--- NOTE | 2017-08-27 06:53 | Progress Notes ---
DATE: 08/26/2017 SUBJECTIVE: The patient is currently in the hospital. He was suicidal, paranoid. On [id number], still fixated on his son, wants to go home, son is trying to work on alternative placement. The patient is rambling on exam, pressured, ruminative, still depressed, withdrawn, but no overt SI. Sleeping fairly well, eating well. He is pretty reclusive and isolative. MEDICATIONS: Reviewed. ASSESSMENT: The patient remains symptomatic, still paranoid, rambling on exam, fearful. PLAN: We will continue to monitor, son noting no evidence of Parkinson's disease, no diagnosis of Parkinson's disease. I spoke with son yesterday I will be increasing Risperdal today. [facility]# [id number]
--- NOTE | 2017-08-27 20:17 | Internal Medicine Prog Note ---
Internal Medicine Subjective - Subjective Service Date: 08/27/17 Patient seen and examined:: with staff Patient is:: awake, verbal, talking, confused Per staff patient has:: no adverse event (HE DENIES ANY PAIN OR SOB) Internal Medicine Objective - Results Result Diagrams: 08/21/17 15:35 08/21/17 15:35 Recent Labs: Laboratory Last Values WBC 5.6 Th/cmm (4.8-10.8) 08/21/17 15:35 RBC 3.72 Mil/cmm (3.80-5.80) L 08/21/17 15:35 Hgb 10.7 gm/dL (12-16) L 08/21/17 15:35 Hct 31.6 % (41.0-60) L 08/21/17 15:35 MCV 85.0 fl (80-99) 08/21/17 15:35 MCH 28.6 pg (27.0-31.0) 08/21/17 15:35 MCHC Differential 33.7 pg (28.0-36.0) 08/21/17 15:35 RDW 18.2 % (11.5-20.0) 08/21/17 15:35 Plt Count 228 Th/cmm (150-400) 08/21/17 15:35 MPV 9.3 fl 08/21/17 15:35 Neutrophils % 68.7 % (40.0-80.0) 08/21/17 15:35 Lymphocytes % 18.2 % (20.0-50.0) L 08/21/17 15:35 Monocytes % 12.5 % (2.0-10.0) H 08/21/17 15:35 Eosinophils % 0.6 % (0.0-5.0) 08/21/17 15:35 Basophils % 0.0 % (0.0-2.0) 08/21/17 15:35 Sodium 135 mEq/L (136-145) L 08/21/17 15:35 Potassium 4.6 mEq/L (3.5-5.1) 08/21/17 15:35 Chloride 109 mEq/L (98-107) H 08/21/17 15:35 Carbon Dioxide 18.4 mEq/L (21.0-31.0) L 08/21/17 15:35 Anion Gap 12.2 (7.0-16.0) 08/21/17 15:35 BUN 28 mg/dL (7-25) H 08/21/17 15:35 Creatinine 1.7 mg/dL (0.7-1.3) H 08/21/17 15:35 Est GFR ( Amer) TNP 08/21/17 15:35 Est GFR (Non-Af Amer) TNP 08/21/17 15:35 BUN/Creatinine Ratio 16.5 08/21/17 15:35 Glucose 104 mg/dL (70-105) 08/21/17 15:35 Hemoglobin A1c % 5.7 % (4.0-6.0) 08/21/17 15:35 Calcium 9.9 mg/dL (8.6-10.3) 08/21/17 15:35 Total Bilirubin 1.9 mg/dL (0.3-1.0) H 08/21/17 15:35 AST 16 U/L (13-39) 08/21/17 15:35 ALT 8 U/L (7-52) 08/21/17 15:35 Alkaline Phosphatase 78 U/L (34-104) 08/21/17 15:35 Total Protein 6.1 gm/dL (6.0-8.3) 08/21/17 15:35 Albumin 3.9 gm/dL (4.2-5.5) L 08/21/17 15:35 Globulin 2.2 gm/dL 08/21/17 15:35 Albumin/Globulin Ratio 1.8 (1.0-1.8) 08/21/17 15:35 Triglycerides 91 mg/dL (<150) 08/21/17 15:35 Cholesterol 111 mg/dL (<200) 08/21/17 15:35 LDL Cholesterol Direct 53 mg/dL (75-193) L 08/21/17 15:35 HDL Cholesterol 48 mg/dL (23-92) 08/21/17 15:35 TSH 0.55 uIU/ml (0.34-5.60) 08/21/17 15:35 Urine Source CLEAN C 08/21/17 16:44 Urine Color YELLOW 08/21/17 16:44 Urine Clarity CLEAR (CLEAR) 08/21/17 16:44 Urine pH 5.5 (4.6 - 8.0) 08/21/17 16:44 Ur Specific [place] 1.015 (1.005-1.030) 08/21/17 16:44 Urine Protein NEGATIVE mg/dL (NEGATIVE) 08/21/17 16:44 Urine Glucose (UA) NEGATIVE mg/dL (NEGATIVE) 02 16:44 Urine Ketones NEGATIVE mg/dL (NEGATIVE) 02 16:44 Urine Blood NEGATIVE (NEGATIVE) 02 16:44 Urine Nitrate NEGATIVE (NEGATIVE) 08/21/17 16:44 Urine Bilirubin NEGATIVE (NEGATIVE) 02 16:44 Urine Urobilinogen 0.2 E.U./dL (0.2 - 1.0) 02 16:44 Ur Leukocyte Esterase NEGATIVE (NEGATIVE) 08/21/17 16:44 Urine RBC NONE SEEN /hpf (0-5) 02 16:44 Urine WBC NONE SEEN /hpf (0-5) 02 16:44 Ur Epithelial Cells NONE SEEN /lpf (FEW) 08/21/17 16:44 Urine Bacteria NONE SEEN /hpf (NONE SEEN) 08/21/17 16:44 Salicylates < 25.0 mg/L (30.0-100.0) L 08/21/17 15:35 Urine Opiates Screen NEGATIVE (NEGATIVE) 08/21/17 16:44 Urine Methadone Screen NEGATIVE (NEGATIVE) 08/21/17 16:44 Acetaminophen < 10.0 ug/mL (10.0-30.0) L 08/21/17 15:35 Ur Barbiturates Screen NEGATIVE (NEGATIVE) 08/21/17 16:44 Ur Tricyclics Screen NEGATIVE (NEGATIVE) 08/21/17 16:44 Ur Phencyclidine Scrn NEGATIVE (NEGATIVE) 08/21/17 16:44 Amphetamines Screen NEGATIVE (NEGATIVE) 08/21/17 16:44 U Methamphetamines Scrn NEGATIVE (NEGATIVE) 08/21/17 16:44 U Benzodiazepines Scrn NEGATIVE (NEGATIVE) 08/21/17 16:44 U Cocaine Metab Screen NEGATIVE (NEGATIVE) 08/21/17 16:44 U Cannabinoids Screen NEGATIVE (NEGATIVE) 08/21/17 16:44 Ethyl Alcohol < 10 mg/dL (0-10) 08/21/17 15:35 RPR NONREACTIVE (NONREACTIVE) 08/21/17 15:35 - Physical Exam Vitals and I&O: Vital Signs Temp 97.3 F 08/27/17 14:00 Pulse 98 08/27/17 16:32 Resp 20 08/27/17 14:00 BP 102/68 08/27/17 16:32 Pulse Ox 96 08/27/17 14:00 Intake & Output 08/27/17 08/27/17 08/28/17 06:59 18:59 06:59 Intake Total 120 1800 Output Total 100 Balance 120 1700 Intake: Oral 120 1800 Output: Stool 100 Other: # Voids 3 4 # Bowel Movements 1 Stool Characteristics Soft Soft Active Medications: Current Medications Acetaminophen (Tylenol) 650 mg PO Q4HR PRN PRN Reason: Pain or Fever >101 Stop: 10/20/17 22:34 Atorvastatin Calcium (Lipitor) 80 mg PO HS [facility] PRN Reason: Protocol Stop: 10/21/17 20:59 Last Admin: 08/26/17 21:25 Dose: 80 mg Docusate Sodium (Colace) 100 mg PO DAILY PRN PRN Reason: Constipation Stop: 10/20/17 22:34 Finasteride (Proscar) 5 mg PO DAILY [facility] PRN Reason: Protocol Stop: 10/21/17 08:59 Last Admin: 08/27/17 08:47 Dose: 5 mg Lorazepam (Ativan) 0.5 mg PO Q4HR PRN; Protocol PRN Reason: Anxiety Stop: 09/20/17 20:14 Last Admin: 08/23/17 09:15 Dose: 0.5 mg Magnesium Hydroxide (Milk Of Magnesia) 30 ml PO DAILY PRN PRN Reason: Constipation Stop: 10/20/17 22:34 Metoprolol Tartrate (Lopressor) 50 mg PO BID [facility] Stop: 10/21/17 08:59 Last Admin: 08/27/17 16:32 Dose: Not Given Miscellaneous (Sacubitril/Valsartan [Entresto 49 Mg-51 Mg Tablet]) 1 tab PO BID [facility] Stop: 10/21/17 08:59 Pantoprazole Sodium (Protonix) 40 mg PO QDAC [facility] Stop: 10/21/17 16:29 Last Admin: 08/27/17 06:44 Dose: 40 mg Risperidone (Risperdal) 1 mg PO BID [facility] PRN Reason: Protocol Stop: 10/25/17 16:59 Last Admin: 08/27/17 16:32 Dose: 1 mg Rivaroxaban (Xarelto) 15 mg PO DAILY [facility] Stop: 10/21/17 16:59 Last Admin: 08/27/17 08:41 Dose: 15 mg Spironolactone (Aldactone) 25 mg PO DAILY [facility] Stop: 10/21/17 08:59 Last Admin: 08/27/17 08:44 Dose: 25 mg Zolpidem Tartrate (Ambien) 5 mg PO HS PRN PRN Reason: Insomnia Stop: 10/20/17 22:40 Last Admin: 08/25/17 20:54 Dose: 5 mg General: demented HEENT: NC/AT, PERRLA, EOMI, anicteric sclerae, throat clear Neck: Supple, No JVD, No thyromegaly, No LAD Lungs: CTAB Cardiovascular: RRR, Normal S1, Normal S2, without murmur Abdomen: non-tender, non-distended Extremities: clear Neurological: no change Internal Medicine Assmt/Plan - Assessment Assessment: 1.A.FIB. 2.HYPERLIPIDEMIA. 3.ANEMIA. 4.BPH. 5.DEMENTIA - Plan Plan: CONTINUE ON CURRENT MEDICATION AND DIET.
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
[2017-08-28] MEDS: Pantoprazole 40 mg EC Tab PO SCH (06:47)
--- NOTE | 2017-08-28 17:16 | Internal Medicine Prog Note ---
Internal Medicine Subjective - Subjective Service Date: 08/28/17 Patient is:: awake, verbal, talking, confused Per staff patient has:: no adverse event (HE DENIES ANY PAIN OR SOB) Internal Medicine Objective - Results Result Diagrams: 08/21/17 15:35 08/21/17 15:35 Recent Labs: Laboratory Last Values WBC 5.6 Th/cmm (4.8-10.8) 08/21/17 15:35 RBC 3.72 Mil/cmm (3.80-5.80) L 08/21/17 15:35 Hgb 10.7 gm/dL (12-16) L 08/21/17 15:35 Hct 31.6 % (41.0-60) L 08/21/17 15:35 MCV 85.0 fl (80-99) 08/21/17 15:35 MCH 28.6 pg (27.0-31.0) 08/21/17 15:35 MCHC Differential 33.7 pg (28.0-36.0) 08/21/17 15:35 RDW 18.2 % (11.5-20.0) 08/21/17 15:35 Plt Count 228 Th/cmm (150-400) 08/21/17 15:35 MPV 9.3 fl 08/21/17 15:35 Neutrophils % 68.7 % (40.0-80.0) 08/21/17 15:35 Lymphocytes % 18.2 % (20.0-50.0) L 08/21/17 15:35 Monocytes % 12.5 % (2.0-10.0) H 08/21/17 15:35 Eosinophils % 0.6 % (0.0-5.0) 08/21/17 15:35 Basophils % 0.0 % (0.0-2.0) 08/21/17 15:35 Sodium 135 mEq/L (136-145) L 08/21/17 15:35 Potassium 4.6 mEq/L (3.5-5.1) 08/21/17 15:35 Chloride 109 mEq/L (98-107) H 08/21/17 15:35 Carbon Dioxide 18.4 mEq/L (21.0-31.0) L 08/21/17 15:35 Anion Gap 12.2 (7.0-16.0) 08/21/17 15:35 BUN 28 mg/dL (7-25) H 08/21/17 15:35 Creatinine 1.7 mg/dL (0.7-1.3) H 08/21/17 15:35 Est GFR ( Amer) TNP 08/21/17 15:35 Est GFR (Non-Af Amer) TNP 08/21/17 15:35 BUN/Creatinine Ratio 16.5 08/21/17 15:35 Glucose 104 mg/dL (70-105) 08/21/17 15:35 Hemoglobin A1c % 5.7 % (4.0-6.0) 08/21/17 15:35 Calcium 9.9 mg/dL (8.6-10.3) 08/21/17 15:35 Total Bilirubin 1.9 mg/dL (0.3-1.0) H 08/21/17 15:35 AST 16 U/L (13-39) 08/21/17 15:35 ALT 8 U/L (7-52) 08/21/17 15:35 Alkaline Phosphatase 78 U/L (34-104) 08/21/17 15:35 Total Protein 6.1 gm/dL (6.0-8.3) 08/21/17 15:35 Albumin 3.9 gm/dL (4.2-5.5) L 08/21/17 15:35 Globulin 2.2 gm/dL 08/21/17 15:35 Albumin/Globulin Ratio 1.8 (1.0-1.8) 08/21/17 15:35 Triglycerides 91 mg/dL (<150) 08/21/17 15:35 Cholesterol 111 mg/dL (<200) 08/21/17 15:35 LDL Cholesterol Direct 53 mg/dL (75-193) L 08/21/17 15:35 HDL Cholesterol 48 mg/dL (23-92) 08/21/17 15:35 TSH 0.55 uIU/ml (0.34-5.60) 08/21/17 15:35 Urine Source CLEAN C 08/21/17 16:44 Urine Color YELLOW 08/21/17 16:44 Urine Clarity CLEAR (CLEAR) 08/21/17 16:44 Urine pH 5.5 (4.6 - 8.0) 08/21/17 16:44 Ur Specific [place] 1.015 (1.005-1.030) 08/21/17 16:44 Urine Protein NEGATIVE mg/dL (NEGATIVE) 08/21/17 16:44 Urine Glucose (UA) NEGATIVE mg/dL (NEGATIVE) 08/21/17 16:44 Urine Ketones NEGATIVE mg/dL (NEGATIVE) 08/21/17 16:44 Urine Blood NEGATIVE (NEGATIVE) 08/21/17 16:44 Urine Nitrate NEGATIVE (NEGATIVE) 08/21/17 16:44 Urine Bilirubin NEGATIVE (NEGATIVE) 08/21/17 16:44 Urine Urobilinogen 0.2 E.U./dL (0.2 - 1.0) 02 16:44 Ur Leukocyte Esterase NEGATIVE (NEGATIVE) 08/21/17 16:44 Urine RBC NONE SEEN /hpf (0-5) 08/21/17 16:44 Urine WBC NONE SEEN /hpf (0-5) 02 16:44 Ur Epithelial Cells NONE SEEN /lpf (FEW) 08/21/17 16:44 Urine Bacteria NONE SEEN /hpf (NONE SEEN) 08/21/17 16:44 Salicylates < 25.0 mg/L (30.0-100.0) L 08/21/17 15:35 Urine Opiates Screen NEGATIVE (NEGATIVE) 08/21/17 16:44 Urine Methadone Screen NEGATIVE (NEGATIVE) 08/21/17 16:44 Acetaminophen < 10.0 ug/mL (10.0-30.0) L 08/21/17 15:35 Ur Barbiturates Screen NEGATIVE (NEGATIVE) 08/21/17 16:44 Ur Tricyclics Screen NEGATIVE (NEGATIVE) 08/21/17 16:44 Ur Phencyclidine Scrn NEGATIVE (NEGATIVE) 08/21/17 16:44 Amphetamines Screen NEGATIVE (NEGATIVE) 08/21/17 16:44 U Methamphetamines Scrn NEGATIVE (NEGATIVE) 08/21/17 16:44 U Benzodiazepines Scrn NEGATIVE (NEGATIVE) 08/21/17 16:44 U Cocaine Metab Screen NEGATIVE (NEGATIVE) 08/21/17 16:44 U Cannabinoids Screen NEGATIVE (NEGATIVE) 08/21/17 16:44 Ethyl Alcohol < 10 mg/dL (0-10) 08/21/17 15:35 RPR NONREACTIVE (NONREACTIVE) 08/21/17 15:35 - Physical Exam Vitals and I&O: Vital Signs Temp 98.2 F 08/28/17 06:53 Pulse 98 08/28/17 16:24 Resp 20 08/28/17 06:53 BP 116/90 08/28/17 16:24 Pulse Ox 97 08/28/17 06:53 Intake & Output 08/27/17 08/28/17 08/28/17 18:59 06:59 18:59 Intake Total 1800 240 Output Total 100 Balance 1700 240 Intake: Oral 1800 240 Output: Stool 100 Other: # Voids 4 3 Stool Characteristics Soft Soft Soft Formed Brown Active Medications: Current Medications Acetaminophen (Tylenol) 650 mg PO Q4HR PRN PRN Reason: Pain or Fever >101 Stop: 10/20/17 22:34 Atorvastatin Calcium (Lipitor) 80 mg PO HS ELVIN PRN Reason: Protocol Stop: 10/21/17 20:59 Last Admin: 08/27/17 21:54 Dose: 80 mg Docusate Sodium (Colace) 100 mg PO DAILY PRN PRN Reason: Constipation Stop: 10/20/17 22:34 Finasteride (Proscar) 5 mg PO DAILY ELVIN PRN Reason: Protocol Stop: 10/21/17 08:59 Last Admin: 08/28/17 08:18 Dose: 5 mg Lorazepam (Ativan) 0.5 mg PO Q4HR PRN; Protocol PRN Reason: Anxiety Stop: 09/20/17 20:14 Last Admin: 08/23/17 09:15 Dose: 0.5 mg Magnesium Hydroxide (Milk Of Magnesia) 30 ml PO DAILY PRN PRN Reason: Constipation Stop: 10/20/17 22:34 Metoprolol Tartrate (Lopressor) 50 mg PO BID ELVIN Stop: 10/21/17 08:59 Last Admin: 08/28/17 16:24 Dose: 50 mg Miscellaneous (Sacubitril/Valsartan [Entresto 49 Mg-51 Mg Tablet]) 1 tab PO BID ELVIN Stop: 10/21/17 08:59 Pantoprazole Sodium (Protonix) 40 mg PO QDAC ELVIN Stop: 10/21/17 16:29 Last Admin: 08/28/17 06:47 Dose: 40 mg Risperidone (Risperdal) 1 mg PO BID ELVIN PRN Reason: Protocol Stop: 10/25/17 16:59 Last Admin: 08/28/17 16:44 Dose: 1 mg Rivaroxaban (Xarelto) 15 mg PO DAILY [facility] Stop: 10/21/17 16:59 Last Admin: 08/28/17 08:20 Dose: 15 mg Spironolactone (Aldactone) 25 mg PO DAILY [facility] Stop: 10/21/17 08:59 Last Admin: 08/28/17 08:19 Dose: 25 mg Zolpidem Tartrate (Ambien) 5 mg PO HS PRN PRN Reason: Insomnia Stop: 10/20/17 22:40 Last Admin: 08/25/17 20:54 Dose: 5 mg General: demented HEENT: NC/AT, PERRLA, EOMI, anicteric sclerae, throat clear Neck: Supple, No JVD, No thyromegaly, No LAD Lungs: CTAB Cardiovascular: RRR, Normal S1, Normal S2, without murmur Abdomen: non-tender, non-distended Extremities: clear Neurological: no change Internal Medicine Assmt/Plan - Assessment Assessment: 1.A.FIB. 2.HYPERLIPIDEMIA. 3.ANEMIA. 4.BPH. 5.DEMENTIA - Plan Plan: CONTINUE ON CURRENT MEDICATION AND DIET. Nutritional Asmnt/Malnutr-PDOC - Dietary Evaluation Malnutrition Findings (Please click <Entered> for more info): Nutritional Asmnt/Malnutrition Start: 08/28/17 13: 29 Text: Status: Complete Freq: Document 08/28/17 13:29 [email or web address] (Rec: 08/28/17 13:31 [email or web address]) Nutritional Asmnt/Malnutrition Patient General Information Nutritional Screening Low Risk Diagnosis depression Pertinent Medical Hx/Surgical Hx HTN, HLD, a fib, anemia, demential, colon ca, BPH Subjective Information pt depressed but eating 75-100 % of meals Current Diet Order/ Nutrition Support regular Patient / S.O Not Indicated Pertinent Medications colace, MOM, protonix, xarelto Pertinent Labs 08/21 Na: 135, BUN: 28, cr: 1.7 Nutritional Hx/Data Height 1.68 m Height (Calculated Centimeters) 167.6 Current Weight (lbs) 73.936 kg Weight (Calculated Kilograms) 73.9 Weight (Calculated Grams) 78143.6 [place] Body Weight 142 % [place] Body Weight 115 Body Mass Index (BMI) 26.3 GI Symptoms GI Symptoms None Last BM 08/27 Difficult in: None Skin Integrity/Comment: intact, no edema Current %PO Good (75-100%) Estimated Nutritional Goals BEE in Kcals: Using Current wt Calories/Kcals/Kg 25-30 Kcals Calculated 0668-4920 Protein: Using Current wt Protein g/k Protein Calculated 74 Fluid: ml 9877-4900 mL (1 ml/kcal) Nutritional Problem No current Nutrition Prob Problem n/a Etiology n/a Signs/Symptoms: n/a Malnutrition Alert Is there a minimum of two criteria No selected? Query Text:Check all the applicable criteria. A minimum of two criteria are recommended for diagnosis of either severe or non-severe malnutrition. Malnutrition Related to Morbid Obesity Malnutrition related to morbid obesity No Intervention/Recommendation Comments 1. Continue regular diet as ordered Expected Outcomes/Goals Expected Outcomes/Goals po intake >50% monitor wts, labs, skin, pO Intake
--- NOTE | 2017-08-28 21:21 | Progress Notes ---
DATE: 08/28/2017 SUBJECTIVE: The patient is currently in the hospital, paranoid, isolative, reclusive, had been suicidal, no longer talking about suicide, but he does remain upset, desperate, hopeful to go back home, but there are concerns about his ability to care for himself. Son is trying to find him placement. The patient is calmer today. No agitation. We have no confirm discharge plan at this time and there are concerns about grave disability and has ability to care for his basic needs. ASSESSMENT: The patient remains symptomatic, still with ongoing paranoia, no longer talking about suicidal, but still appearing depressed and withdrawn, reclusive. PLAN: We will continue to monitor, coordinate care with social work regarding safe discharge plan and good psychiatric followup. JOB# [id number]
[2017-08-29] MEDS: Pantoprazole 40 mg EC Tab PO SCH (07:00)
--- NOTE | 2017-08-29 20:06 | Internal Medicine Prog Note ---
Internal Medicine Subjective - Subjective Service Date: 08/29/17 Patient seen and examined:: with staff Patient is:: awake, verbal, talking, confused Per staff patient has:: no adverse event (HE DENIES ANY PAIN OR SOB) Internal Medicine Objective - Results Result Diagrams: 08/21/17 15:35 08/21/17 15:35 Recent Labs: Laboratory Last Values WBC 5.6 Th/cmm (4.8-10.8) 08/21/17 15:35 RBC 3.72 Mil/cmm (3.80-5.80) L 08/21/17 15:35 Hgb 10.7 gm/dL (12-16) L 08/21/17 15:35 Hct 31.6 % (41.0-60) L 08/21/17 15:35 MCV 85.0 fl (80-99) 08/21/17 15:35 MCH 28.6 pg (27.0-31.0) 08/21/17 15:35 MCHC Differential 33.7 pg (28.0-36.0) 08/21/17 15:35 RDW 18.2 % (11.5-20.0) 08/21/17 15:35 Plt Count 228 Th/cmm (150-400) 08/21/17 15:35 MPV 9.3 fl 08/21/17 15:35 Neutrophils % 68.7 % (40.0-80.0) 08/21/17 15:35 Lymphocytes % 18.2 % (20.0-50.0) L 08/21/17 15:35 Monocytes % 12.5 % (2.0-10.0) H 08/21/17 15:35 Eosinophils % 0.6 % (0.0-5.0) 08/21/17 15:35 Basophils % 0.0 % (0.0-2.0) 08/21/17 15:35 Sodium 135 mEq/L (136-145) L 08/21/17 15:35 Potassium 4.6 mEq/L (3.5-5.1) 08/21/17 15:35 Chloride 109 mEq/L (98-107) H 08/21/17 15:35 Carbon Dioxide 18.4 mEq/L (21.0-31.0) L 08/21/17 15:35 Anion Gap 12.2 (7.0-16.0) 08/21/17 15:35 BUN 28 mg/dL (7-25) H 08/21/17 15:35 Creatinine 1.7 mg/dL (0.7-1.3) H 08/21/17 15:35 Est GFR ( Amer) TNP 08/21/17 15:35 Est GFR (Non-Af Amer) TNP 08/21/17 15:35 BUN/Creatinine Ratio 16.5 08/21/17 15:35 Glucose 104 mg/dL (70-105) 08/21/17 15:35 Hemoglobin A1c % 5.7 % (4.0-6.0) 08/21/17 15:35 Calcium 9.9 mg/dL (8.6-10.3) 08/21/17 15:35 Total Bilirubin 1.9 mg/dL (0.3-1.0) H 08/21/17 15:35 AST 16 U/L (13-39) 08/21/17 15:35 ALT 8 U/L (7-52) 08/21/17 15:35 Alkaline Phosphatase 78 U/L (34-104) 08/21/17 15:35 Total Protein 6.1 gm/dL (6.0-8.3) 08/21/17 15:35 Albumin 3.9 gm/dL (4.2-5.5) L 08/21/17 15:35 Globulin 2.2 gm/dL 08/21/17 15:35 Albumin/Globulin Ratio 1.8 (1.0-1.8) 08/21/17 15:35 Triglycerides 91 mg/dL (<150) 08/21/17 15:35 Cholesterol 111 mg/dL (<200) 08/21/17 15:35 LDL Cholesterol Direct 53 mg/dL (75-193) L 08/21/17 15:35 HDL Cholesterol 48 mg/dL (23-92) 08/21/17 15:35 TSH 0.55 uIU/ml (0.34-5.60) 08/21/17 15:35 Urine Source CLEAN C 08/21/17 16:44 Urine Color YELLOW 08/21/17 16:44 Urine Clarity CLEAR (CLEAR) 08/21/17 16:44 Urine pH 5.5 (4.6 - 8.0) 08/21/17 16:44 Ur Specific [place] 1.015 (1.005-1.030) 08/21/17 16:44 Urine Protein NEGATIVE mg/dL (NEGATIVE) 08/21/17 16:44 Urine Glucose (UA) NEGATIVE mg/dL (NEGATIVE) 02 16:44 Urine Ketones NEGATIVE mg/dL (NEGATIVE) 02 16:44 Urine Blood NEGATIVE (NEGATIVE) 02 16:44 Urine Nitrate NEGATIVE (NEGATIVE) 08/21/17 16:44 Urine Bilirubin NEGATIVE (NEGATIVE) 02 16:44 Urine Urobilinogen 0.2 E.U./dL (0.2 - 1.0) 02 16:44 Ur Leukocyte Esterase NEGATIVE (NEGATIVE) 08/21/17 16:44 Urine RBC NONE SEEN /hpf (0-5) 02 16:44 Urine WBC NONE SEEN /hpf (0-5) 02 16:44 Ur Epithelial Cells NONE SEEN /lpf (FEW) 08/21/17 16:44 Urine Bacteria NONE SEEN /hpf (NONE SEEN) 08/21/17 16:44 Salicylates < 25.0 mg/L (30.0-100.0) L 08/21/17 15:35 Urine Opiates Screen NEGATIVE (NEGATIVE) 08/21/17 16:44 Urine Methadone Screen NEGATIVE (NEGATIVE) 08/21/17 16:44 Acetaminophen < 10.0 ug/mL (10.0-30.0) L 08/21/17 15:35 Ur Barbiturates Screen NEGATIVE (NEGATIVE) 08/21/17 16:44 Ur Tricyclics Screen NEGATIVE (NEGATIVE) 08/21/17 16:44 Ur Phencyclidine Scrn NEGATIVE (NEGATIVE) 08/21/17 16:44 Amphetamines Screen NEGATIVE (NEGATIVE) 08/21/17 16:44 U Methamphetamines Scrn NEGATIVE (NEGATIVE) 08/21/17 16:44 U Benzodiazepines Scrn NEGATIVE (NEGATIVE) 08/21/17 16:44 U Cocaine Metab Screen NEGATIVE (NEGATIVE) 08/21/17 16:44 U Cannabinoids Screen NEGATIVE (NEGATIVE) 08/21/17 16:44 Ethyl Alcohol < 10 mg/dL (0-10) 08/21/17 15:35 RPR NONREACTIVE (NONREACTIVE) 08/21/17 15:35 - Physical Exam Vitals and I&O: Vital Signs Temp 97.6 F 08/29/17 15:41 Pulse 100 08/29/17 17:10 Resp 20 08/29/17 15:41 BP 107/68 08/29/17 17:10 Pulse Ox 96 08/29/17 15:41 Intake & Output 08/29/17 08/29/17 08/30/17 06:59 18:59 06:59 Intake Total 120 1200 Balance 120 1200 Intake: Oral 120 1200 Other: # Voids 3 # Bowel Movements 2 Stool Characteristics Soft Soft Brown Brown Active Medications: Current Medications Acetaminophen (Tylenol) 650 mg PO Q4HR PRN PRN Reason: Pain or Fever >101 Stop: 10/20/17 22:34 Atorvastatin Calcium (Lipitor) 80 mg PO HS ELVIN PRN Reason: Protocol Stop: 10/21/17 20:59 Last Admin: 08/28/17 21:30 Dose: 80 mg Benztropine Mesylate (Cogentin) 0.5 mg PO BID ELVIN Stop: 10/28/17 16:59 Last Admin: 08/29/17 17:27 Dose: 0.5 mg Docusate Sodium (Colace) 100 mg PO DAILY PRN PRN Reason: Constipation Stop: 10/20/17 22:34 Finasteride (Proscar) 5 mg PO DAILY ELVIN PRN Reason: Protocol Stop: 10/21/17 08:59 Last Admin: 08/29/17 08:19 Dose: 5 mg Lorazepam (Ativan) 0.5 mg PO Q4HR PRN; Protocol PRN Reason: Anxiety Stop: 09/20/17 20:14 Last Admin: 08/29/17 08:19 Dose: 0.5 mg Magnesium Hydroxide (Milk Of Magnesia) 30 ml PO DAILY PRN PRN Reason: Constipation Stop: 10/20/17 22:34 Metoprolol Tartrate (Lopressor) 50 mg PO BID ELVIN Stop: 10/21/17 08:59 Last Admin: 08/29/17 17:10 Dose: Not Given Miscellaneous (Sacubitril/Valsartan [Entresto 49 Mg-51 Mg Tablet]) 1 tab PO BID ELVIN Stop: 10/21/17 08:59 Pantoprazole Sodium (Protonix) 40 mg PO QDAC ELVIN Stop: 10/21/17 16:29 Last Admin: 08/29/17 07:00 Dose: 40 mg Risperidone (Risperdal) 1 mg PO BID ELVIN PRN Reason: Protocol Stop: 10/25/17 16:59 Last Admin: 08/29/17 17:27 Dose: 1 mg Rivaroxaban (Xarelto) 15 mg PO DAILY [facility] Stop: 10/21/17 16:59 Last Admin: 08/29/17 08:19 Dose: 15 mg Spironolactone (Aldactone) 25 mg PO DAILY ELVIN Stop: 10/21/17 08:59 Last Admin: 08/29/17 08:19 Dose: 25 mg Zolpidem Tartrate (Ambien) 5 mg PO HS PRN PRN Reason: Insomnia Stop: 10/20/17 22:40 Last Admin: 08/28/17 21:30 Dose: 5 mg General: demented HEENT: NC/AT, PERRLA, EOMI, anicteric sclerae, throat clear Neck: Supple, No JVD, No thyromegaly, No LAD Lungs: CTAB Cardiovascular: RRR, Normal S1, Normal S2, without murmur Abdomen: non-tender, non-distended Extremities: clear Neurological: no change Internal Medicine Assmt/Plan - Assessment Assessment: 1.A.FIB. 2.HYPERLIPIDEMIA. 3.ANEMIA. 4.BPH. 5.DEMENTIA - Plan Plan: CONTINUE ON CURRENT MEDICATION AND DIET. Nutritional Asmnt/Malnutr-PDOC - Dietary Evaluation Malnutrition Findings (Please click <Entered> for more info): Nutritional Asmnt/Malnutrition Start: 08/28/17 13: 29 Text: Status: Complete Freq: Document 08/28/17 13:29 [email or web address] (Rec: 08/28/17 13:31 [email or web address]) Nutritional Asmnt/Malnutrition Patient General Information Nutritional Screening Low Risk Diagnosis depression Pertinent Medical Hx/Surgical Hx HTN, HLD, a fib, anemia, demential, colon ca, BPH Subjective Information pt depressed but eating 75-100 % of meals Current Diet Order/ Nutrition Support regular Patient / S.O Not Indicated Pertinent Medications colace, MOM, protonix, xarelto Pertinent Labs 08/21 Na: 135, BUN: 28, cr: 1.7 Nutritional Hx/Data Height 1.68 m Height (Calculated Centimeters) 167.6 Current Weight (lbs) 73.936 kg Weight (Calculated Kilograms) 73.9 Weight (Calculated Grams) 78682.6 [place] Body Weight 142 % [place] Body Weight 115 Body Mass Index (BMI) 26.3 GI Symptoms GI Symptoms None Last BM 08/27 Difficult in: None Skin Integrity/Comment: intact, no edema Current %PO Good (75-100%) Estimated Nutritional Goals BEE in Kcals: Using Current wt Calories/Kcals/Kg 25-30 Kcals Calculated 2914-5675 Protein: Using Current wt Protein g/k Protein Calculated 74 Fluid: ml 7311-1442 mL (1 ml/kcal) Nutritional Problem No current Nutrition Prob Problem n/a Etiology n/a Signs/Symptoms: n/a Malnutrition Alert Is there a minimum of two criteria No selected? Query Text:Check all the applicable criteria. A minimum of two criteria are recommended for diagnosis of either severe or non-severe malnutrition. Malnutrition Related to Morbid Obesity Malnutrition related to morbid obesity No Intervention/Recommendation Comments 1. Continue regular diet as ordered Expected Outcomes/Goals Expected Outcomes/Goals po intake >50% monitor wts, labs, skin, pO Intake
--- NOTE | 2017-08-30 02:41 | Progress Notes ---
DATE: 08/29/2017 SUBJECTIVE: The patient is currently in the hospital, paranoid, isolative, occlusive on [id number], he is calmer, somewhat more accepting of placement. He remains intrusive; however, ruminative, rambling, still attesting to some paranoia, sounds other people are trying to harm him, but he is noting these thoughts are improving and he is eating fairly well. Sleeping is somewhat interrupted. It is unclear what his discharge plan is at this time. There are concerns about grave disability. MEDICATIONS: Reviewed. ASSESSMENT: The patient remains symptomatic, occlusive, isolative, ongoing paranoia. PLAN: We will continue to monitor. We will coordinate care and try to confirm placement. Given recent dose increases of medications, we will hold the current dose. [facility]# [id number]
[2017-08-30] MEDS: Pantoprazole 40 mg EC Tab PO SCH (06:30)
--- NOTE | 2017-08-30 21:08 | General Progress Note ---
Subjective - Review of Systems Service Date: 08/30/17 Subjective: resting comfortably alert and communicative Objective - Results Result Diagrams: 08/21/17 15:35 08/21/17 15:35 Recent Labs: Laboratory Last Values WBC 5.6 Th/cmm (4.8-10.8) 08/21/17 15:35 RBC 3.72 Mil/cmm (3.80-5.80) L 08/21/17 15:35 Hgb 10.7 gm/dL (12-16) L 08/21/17 15:35 Hct 31.6 % (41.0-60) L 08/21/17 15:35 MCV 85.0 fl (80-99) 08/21/17 15:35 MCH 28.6 pg (27.0-31.0) 08/21/17 15:35 MCHC Differential 33.7 pg (28.0-36.0) 08/21/17 15:35 RDW 18.2 % (11.5-20.0) 08/21/17 15:35 Plt Count 228 Th/cmm (150-400) 08/21/17 15:35 MPV 9.3 fl 08/21/17 15:35 Neutrophils % 68.7 % (40.0-80.0) 08/21/17 15:35 Lymphocytes % 18.2 % (20.0-50.0) L 08/21/17 15:35 Monocytes % 12.5 % (2.0-10.0) H 08/21/17 15:35 Eosinophils % 0.6 % (0.0-5.0) 08/21/17 15:35 Basophils % 0.0 % (0.0-2.0) 08/21/17 15:35 Sodium 135 mEq/L (136-145) L 08/21/17 15:35 Potassium 4.6 mEq/L (3.5-5.1) 08/21/17 15:35 Chloride 109 mEq/L (98-107) H 08/21/17 15:35 Carbon Dioxide 18.4 mEq/L (21.0-31.0) L 08/21/17 15:35 Anion Gap 12.2 (7.0-16.0) 08/21/17 15:35 BUN 28 mg/dL (7-25) H 08/21/17 15:35 Creatinine 1.7 mg/dL (0.7-1.3) H 08/21/17 15:35 Est GFR ( Amer) TNP 08/21/17 15:35 Est GFR (Non-Af Amer) TNP 08/21/17 15:35 BUN/Creatinine Ratio 16.5 08/21/17 15:35 Glucose 104 mg/dL (70-105) 08/21/17 15:35 Hemoglobin A1c % 5.7 % (4.0-6.0) 08/21/17 15:35 Calcium 9.9 mg/dL (8.6-10.3) 08/21/17 15:35 Total Bilirubin 1.9 mg/dL (0.3-1.0) H 08/21/17 15:35 AST 16 U/L (13-39) 08/21/17 15:35 ALT 8 U/L (7-52) 08/21/17 15:35 Alkaline Phosphatase 78 U/L (34-104) 08/21/17 15:35 Total Protein 6.1 gm/dL (6.0-8.3) 08/21/17 15:35 Albumin 3.9 gm/dL (4.2-5.5) L 08/21/17 15:35 Globulin 2.2 gm/dL 08/21/17 15:35 Albumin/Globulin Ratio 1.8 (1.0-1.8) 08/21/17 15:35 Triglycerides 91 mg/dL (<150) 08/21/17 15:35 Cholesterol 111 mg/dL (<200) 08/21/17 15:35 LDL Cholesterol Direct 53 mg/dL (75-193) L 08/21/17 15:35 HDL Cholesterol 48 mg/dL (23-92) 08/21/17 15:35 TSH 0.55 uIU/ml (0.34-5.60) 08/21/17 15:35 Urine Source CLEAN C 08/21/17 16:44 Urine Color YELLOW 08/21/17 16:44 Urine Clarity CLEAR (CLEAR) 08/21/17 16:44 Urine pH 5.5 (4.6 - 8.0) 08/21/17 16:44 Ur Specific [place] 1.015 (1.005-1.030) 02/08/18 16:44 Urine Protein NEGATIVE mg/dL (NEGATIVE) 08/21/17 16:44 Urine Glucose (UA) NEGATIVE mg/dL (NEGATIVE) 08/21/17 16:44 Urine Ketones NEGATIVE mg/dL (NEGATIVE) 08/21/17 16:44 Urine Blood NEGATIVE (NEGATIVE) 08/21/17 16:44 Urine Nitrate NEGATIVE (NEGATIVE) 08/21/17 16:44 Urine Bilirubin NEGATIVE (NEGATIVE) 08/21/17 16:44 Urine Urobilinogen 0.2 E.U./dL (0.2 - 1.0) 02 16:44 Ur Leukocyte Esterase NEGATIVE (NEGATIVE) 08/21/17 16:44 Urine RBC NONE SEEN /hpf (0-5) 08/21/17 16:44 Urine WBC NONE SEEN /hpf (0-5) 08/21/17 16:44 Ur Epithelial Cells NONE SEEN /lpf (FEW) 08/21/17 16:44 Urine Bacteria NONE SEEN /hpf (NONE SEEN) 08/21/17 16:44 Salicylates < 25.0 mg/L (30.0-100.0) L 08/21/17 15:35 Urine Opiates Screen NEGATIVE (NEGATIVE) 08/21/17 16:44 Urine Methadone Screen NEGATIVE (NEGATIVE) 08/21/17 16:44 Acetaminophen < 10.0 ug/mL (10.0-30.0) L 08/21/17 15:35 Ur Barbiturates Screen NEGATIVE (NEGATIVE) 08/21/17 16:44 Ur Tricyclics Screen NEGATIVE (NEGATIVE) 08/21/17 16:44 Ur Phencyclidine Scrn NEGATIVE (NEGATIVE) 08/21/17 16:44 Amphetamines Screen NEGATIVE (NEGATIVE) 08/21/17 16:44 U Methamphetamines Scrn NEGATIVE (NEGATIVE) 08/21/17 16:44 U Benzodiazepines Scrn NEGATIVE (NEGATIVE) 08/21/17 16:44 U Cocaine Metab Screen NEGATIVE (NEGATIVE) 08/21/17 16:44 U Cannabinoids Screen NEGATIVE (NEGATIVE) 08/21/17 16:44 Ethyl Alcohol < 10 mg/dL (0-10) 08/21/17 15:35 RPR NONREACTIVE (NONREACTIVE) 08/21/17 15:35 - Physical Exam Vitals and I&O: Vital Signs Temp 98.2 F 08/30/17 20:54 Pulse 96 08/30/17 20:54 Resp 20 08/30/17 20:54 BP 137/85 08/30/17 20:54 Pulse Ox 98 08/30/17 20:54 Intake & Output 08/30/17 08/30/17 08/31/17 06:59 18:59 06:59 Intake Total 490 1200 120 Balance 490 1200 120 Intake: Oral 490 1200 120 Other: # Voids 2 3 1 # Bowel Movements 2 Stool Characteristics Soft Soft Soft Brown Brown Brown Active Medications: Current Medications Acetaminophen (Tylenol) 650 mg PO Q4HR PRN PRN Reason: Pain or Fever >101 Stop: 10/20/17 22:34 Atorvastatin Calcium (Lipitor) 80 mg PO HS [facility] PRN Reason: Protocol Stop: 10/21/17 20:59 Last Admin: 08/29/17 21:48 Dose: 80 mg Benztropine Mesylate (Cogentin) 0.5 mg PO BID [facility] Stop: 10/28/17 16:59 Last Admin: 08/30/17 16:59 Dose: 0.5 mg Docusate Sodium (Colace) 100 mg PO DAILY PRN PRN Reason: Constipation Stop: 10/20/17 22:34 Finasteride (Proscar) 5 mg PO DAILY [facility] PRN Reason: Protocol Stop: 10/21/17 08:59 Last Admin: 08/30/17 08:34 Dose: 5 mg Lorazepam (Ativan) 0.5 mg PO Q4HR PRN; Protocol PRN Reason: Anxiety Stop: 09/20/17 20:14 Last Admin: 08/29/17 21:47 Dose: 0.5 mg Magnesium Hydroxide (Milk Of Magnesia) 30 ml PO DAILY PRN PRN Reason: Constipation Stop: 10/20/17 22:34 Metoprolol Tartrate (Lopressor) 50 mg PO BID [facility] Stop: 10/21/17 08:59 Last Admin: 08/30/17 16:59 Dose: Not Given Miscellaneous (Sacubitril/Valsartan [Entresto 49 Mg-51 Mg Tablet]) 1 tab PO BID [facility] Stop: 10/21/17 08:59 Pantoprazole Sodium (Protonix) 40 mg PO QDAC [facility] Stop: 10/21/17 16:29 Last Admin: 08/30/17 06:30 Dose: 40 mg Risperidone (Risperdal) 1 mg PO BID [facility] PRN Reason: Protocol Stop: 10/25/17 16:59 Last Admin: 08/30/17 16:58 Dose: 1 mg Rivaroxaban (Xarelto) 15 mg PO DAILY [facility] Stop: 10/21/17 16:59 Last Admin: 08/30/17 08:33 Dose: 15 mg Spironolactone (Aldactone) 25 mg PO DAILY [facility] Stop: 10/21/17 08:59 Last Admin: 08/30/17 08:36 Dose: 25 mg Zolpidem Tartrate (Ambien) 5 mg PO HS PRN PRN Reason: Insomnia Stop: 10/20/17 22:40 Last Admin: 08/29/17 21:47 Dose: 5 mg General: Alert, No acute distress HEENT: Atraumatic, PERRLA, EOMI Neck: Supple, JVD Cardiovascular: Regular rate, Normal S1, Normal S2 Lungs: Clear to auscultation Abdomen: Bowel sounds, Soft Assessment/Plan - Assessment Assessment: 1.A.FIB. 2.HYPERLIPIDEMIA. 3.ANEMIA. 4.BPH. 5.DEMENTIA. - Plan Plan: cont current treatment Nutritional Asmnt/Malnutr-PDOC - Dietary Evaluation Malnutrition Findings (Please click <Entered> for more info): Nutritional Asmnt/Malnutrition Start: 08/28/17 13: 29 Text: Status: Complete Freq: Document 08/28/17 13:29 [email or web address] (Rec: 08/28/17 13:31 [email or web address]) Nutritional Asmnt/Malnutrition Patient General Information Nutritional Screening Low Risk Diagnosis depression Pertinent Medical Hx/Surgical Hx HTN, HLD, a fib, anemia, demential, colon ca, BPH Subjective Information pt depressed but eating 75-100 % of meals Current Diet Order/ Nutrition Support regular Patient / S.O Not Indicated Pertinent Medications colace, MOM, protonix, xarelto Pertinent Labs 08/21 Na: 135, BUN: 28, cr: 1.7 Nutritional Hx/Data Height 1.68 m Height (Calculated Centimeters) 167.6 Current Weight (lbs) 73.936 kg Weight (Calculated Kilograms) 73.9 Weight (Calculated Grams) 62972.6 [place] Body Weight 142 % [place] Body Weight 115 Body Mass Index (BMI) 26.3 GI Symptoms GI Symptoms None Last BM 2/14 Difficult in: None Skin Integrity/Comment: intact, no edema Current %PO Good (75-100%) Estimated Nutritional Goals BEE in Kcals: Using Current wt Calories/Kcals/Kg 25-30 Kcals Calculated 9865-0025 Protein: Using Current wt Protein g/k Protein Calculated 74 Fluid: ml 7942-9871 mL (1 ml/kcal) Nutritional Problem No current Nutrition Prob Problem n/a Etiology n/a Signs/Symptoms: n/a Malnutrition Alert Is there a minimum of two criteria No selected? Query Text:Check all the applicable criteria. A minimum of two criteria are recommended for diagnosis of either severe or non-severe malnutrition. Malnutrition Related to Morbid Obesity Malnutrition related to morbid obesity No Intervention/Recommendation Comments 1. Continue regular diet as ordered Expected Outcomes/Goals Expected Outcomes/Goals po intake >50% monitor wts, labs, skin, pO Intake
--- NOTE | 2017-08-30 21:38 | Progress Notes ---
DATE: SUBJECTIVE: The patient was seen, chart reviewed and discussed with staff. The patient continues to be extremely paranoid, self isolative, very intrusive, ruminating and rambling. Continues to feel that the people trying to hurt him. He has, however, been compliant with medications, denying any undue side effects. PLAN: The patient continues to be extremely confused and a danger to himself, so that he will require inpatient care center treatment. We will monitor patient on a daily basis for response to treatment and titrate medication as needed. [facility]# [id number]
[2017-08-31] MEDS: Pantoprazole 40 mg EC Tab PO SCH (06:32)
--- NOTE | 2017-08-31 10:36 | General Progress Note ---
Subjective - Review of Systems Service Date: 08/31/17 Subjective: resting comfortably alert and communicative Objective - Results Result Diagrams: 08/21/17 15:35 08/21/17 15:35 Recent Labs: Laboratory Last Values WBC 5.6 Th/cmm (4.8-10.8) 08/21/17 15:35 RBC 3.72 Mil/cmm (3.80-5.80) L 08/21/17 15:35 Hgb 10.7 gm/dL (12-16) L 08/21/17 15:35 Hct 31.6 % (41.0-60) L 08/21/17 15:35 MCV 85.0 fl (80-99) 08/21/17 15:35 MCH 28.6 pg (27.0-31.0) 08/21/17 15:35 MCHC Differential 33.7 pg (28.0-36.0) 08/21/17 15:35 RDW 18.2 % (11.5-20.0) 08/21/17 15:35 Plt Count 228 Th/cmm (150-400) 08/21/17 15:35 MPV 9.3 fl 08/21/17 15:35 Neutrophils % 68.7 % (40.0-80.0) 08/21/17 15:35 Lymphocytes % 18.2 % (20.0-50.0) L 08/21/17 15:35 Monocytes % 12.5 % (2.0-10.0) H 08/21/17 15:35 Eosinophils % 0.6 % (0.0-5.0) 08/21/17 15:35 Basophils % 0.0 % (0.0-2.0) 08/21/17 15:35 Sodium 135 mEq/L (136-145) L 08/21/17 15:35 Potassium 4.6 mEq/L (3.5-5.1) 08/21/17 15:35 Chloride 109 mEq/L (98-107) H 08/21/17 15:35 Carbon Dioxide 18.4 mEq/L (21.0-31.0) L 08/21/17 15:35 Anion Gap 12.2 (7.0-16.0) 08/21/17 15:35 BUN 28 mg/dL (7-25) H 08/21/17 15:35 Creatinine 1.7 mg/dL (0.7-1.3) H 08/21/17 15:35 Est GFR ( Amer) TNP 08/21/17 15:35 Est GFR (Non-Af Amer) TNP 08/21/17 15:35 BUN/Creatinine Ratio 16.5 08/21/17 15:35 Glucose 104 mg/dL (70-105) 08/21/17 15:35 Hemoglobin A1c % 5.7 % (4.0-6.0) 08/21/17 15:35 Calcium 9.9 mg/dL (8.6-10.3) 08/21/17 15:35 Total Bilirubin 1.9 mg/dL (0.3-1.0) H 08/21/17 15:35 AST 16 U/L (13-39) 08/21/17 15:35 ALT 8 U/L (7-52) 08/21/17 15:35 Alkaline Phosphatase 78 U/L (34-104) 08/21/17 15:35 Total Protein 6.1 gm/dL (6.0-8.3) 08/21/17 15:35 Albumin 3.9 gm/dL (4.2-5.5) L 08/21/17 15:35 Globulin 2.2 gm/dL 08/21/17 15:35 Albumin/Globulin Ratio 1.8 (1.0-1.8) 08/21/17 15:35 Triglycerides 91 mg/dL (<150) 08/21/17 15:35 Cholesterol 111 mg/dL (<200) 08/21/17 15:35 LDL Cholesterol Direct 53 mg/dL (75-193) L 08/21/17 15:35 HDL Cholesterol 48 mg/dL (23-92) 08/21/17 15:35 TSH 0.55 uIU/ml (0.34-5.60) 08/21/17 15:35 Urine Source CLEAN C 08/21/17 16:44 Urine Color YELLOW 08/21/17 16:44 Urine Clarity CLEAR (CLEAR) 08/21/17 16:44 Urine pH 5.5 (4.6 - 8.0) 08/21/17 16:44 Ur Specific [place] 1.015 (1.005-1.030) 02/08/18 16:44 Urine Protein NEGATIVE mg/dL (NEGATIVE) 08/21/17 16:44 Urine Glucose (UA) NEGATIVE mg/dL (NEGATIVE) 08/21/17 16:44 Urine Ketones NEGATIVE mg/dL (NEGATIVE) 08/21/17 16:44 Urine Blood NEGATIVE (NEGATIVE) 08/21/17 16:44 Urine Nitrate NEGATIVE (NEGATIVE) 08/21/17 16:44 Urine Bilirubin NEGATIVE (NEGATIVE) 08/21/17 16:44 Urine Urobilinogen 0.2 E.U./dL (0.2 - 1.0) 02 16:44 Ur Leukocyte Esterase NEGATIVE (NEGATIVE) 08/21/17 16:44 Urine RBC NONE SEEN /hpf (0-5) 08/21/17 16:44 Urine WBC NONE SEEN /hpf (0-5) 08/21/17 16:44 Ur Epithelial Cells NONE SEEN /lpf (FEW) 08/21/17 16:44 Urine Bacteria NONE SEEN /hpf (NONE SEEN) 08/21/17 16:44 Salicylates < 25.0 mg/L (30.0-100.0) L 08/21/17 15:35 Urine Opiates Screen NEGATIVE (NEGATIVE) 08/21/17 16:44 Urine Methadone Screen NEGATIVE (NEGATIVE) 08/21/17 16:44 Acetaminophen < 10.0 ug/mL (10.0-30.0) L 08/21/17 15:35 Ur Barbiturates Screen NEGATIVE (NEGATIVE) 08/21/17 16:44 Ur Tricyclics Screen NEGATIVE (NEGATIVE) 08/21/17 16:44 Ur Phencyclidine Scrn NEGATIVE (NEGATIVE) 08/21/17 16:44 Amphetamines Screen NEGATIVE (NEGATIVE) 08/21/17 16:44 U Methamphetamines Scrn NEGATIVE (NEGATIVE) 08/21/17 16:44 U Benzodiazepines Scrn NEGATIVE (NEGATIVE) 08/21/17 16:44 U Cocaine Metab Screen NEGATIVE (NEGATIVE) 08/21/17 16:44 U Cannabinoids Screen NEGATIVE (NEGATIVE) 08/21/17 16:44 Ethyl Alcohol < 10 mg/dL (0-10) 08/21/17 15:35 RPR NONREACTIVE (NONREACTIVE) 08/21/17 15:35 - Physical Exam Vitals and I&O: Vital Signs Temp 98.2 F 08/30/17 20:54 Pulse 94 08/31/17 10:33 Resp 20 08/30/17 20:54 BP 128/71 08/31/17 10:33 Pulse Ox 98 08/30/17 20:54 Intake & Output 08/30/17 08/31/17 08/31/17 18:59 06:59 18:59 Intake Total 1200 120 Balance 1200 120 Intake: Oral 1200 120 Other: # Voids 3 1 # Bowel Movements 2 Stool Characteristics Soft Soft Brown Brown Active Medications: Current Medications Acetaminophen (Tylenol) 650 mg PO Q4HR PRN PRN Reason: Pain or Fever >101 Stop: 10/20/17 22:34 Atorvastatin Calcium (Lipitor) 80 mg PO HS [facility] PRN Reason: Protocol Stop: 10/21/17 20:59 Last Admin: 08/30/17 21:32 Dose: 80 mg Benztropine Mesylate (Cogentin) 0.5 mg PO BID [facility] Stop: 10/28/17 16:59 Last Admin: 08/31/17 10:00 Dose: 0.5 mg Docusate Sodium (Colace) 100 mg PO DAILY PRN PRN Reason: Constipation Stop: 10/20/17 22:34 Finasteride (Proscar) 5 mg PO DAILY [facility] PRN Reason: Protocol Stop: 10/21/17 08:59 Last Admin: 08/31/17 10:00 Dose: 5 mg Lorazepam (Ativan) 0.5 mg PO Q4HR PRN; Protocol PRN Reason: Anxiety Stop: 09/20/17 20:14 Last Admin: 08/31/17 10:35 Dose: 0.5 mg Magnesium Hydroxide (Milk Of Magnesia) 30 ml PO DAILY PRN PRN Reason: Constipation Stop: 10/20/17 22:34 Metoprolol Tartrate (Lopressor) 50 mg PO BID [facility] Stop: 10/21/17 08:59 Last Admin: 08/31/17 10:33 Dose: 50 mg Miscellaneous (Sacubitril/Valsartan [Entresto 49 Mg-51 Mg Tablet]) 1 tab PO BID [facility] Stop: 10/21/17 08:59 Pantoprazole Sodium (Protonix) 40 mg PO QDAC [facility] Stop: 10/21/17 16:29 Last Admin: 08/31/17 06:32 Dose: 40 mg Risperidone (Risperdal) 1 mg PO BID [facility] PRN Reason: Protocol Stop: 10/25/17 16:59 Last Admin: 08/31/17 10:00 Dose: 1 mg Rivaroxaban (Xarelto) 15 mg PO DAILY [facility] Stop: 10/21/17 16:59 Last Admin: 08/31/17 10:00 Dose: 15 mg Spironolactone (Aldactone) 25 mg PO DAILY [facility] Stop: 10/21/17 08:59 Last Admin: 08/31/17 10:00 Dose: 25 mg Zolpidem Tartrate (Ambien) 5 mg PO HS PRN PRN Reason: Insomnia Stop: 10/20/17 22:40 Last Admin: 08/29/17 21:47 Dose: 5 mg General: Alert, No acute distress HEENT: Atraumatic, PERRLA, EOMI Neck: Supple, JVD Cardiovascular: Regular rate, Normal S1, Normal S2 Lungs: Clear to auscultation Abdomen: Bowel sounds, Soft Assessment/Plan - Assessment Assessment: 1.A.FIB. 2.HYPERLIPIDEMIA. 3.ANEMIA. 4.BPH. 5.DEMENTIA. - Plan Plan: cont current treatment Nutritional Asmnt/Malnutr-PDOC - Dietary Evaluation Malnutrition Findings (Please click <Entered> for more info): Nutritional Asmnt/Malnutrition Start: 08/28/17 13: 29 Text: Status: Complete Freq: Document 08/28/17 13:29 [email or web address] (Rec: 08/28/17 13:31 [email or web address]) Nutritional Asmnt/Malnutrition Patient General Information Nutritional Screening Low Risk Diagnosis depression Pertinent Medical Hx/Surgical Hx HTN, HLD, a fib, anemia, demential, colon ca, BPH Subjective Information pt depressed but eating 75-100 % of meals Current Diet Order/ Nutrition Support regular Patient / S.O Not Indicated Pertinent Medications colace, MOM, protonix, xarelto Pertinent Labs 08/21 Na: 135, BUN: 28, cr: 1.7 Nutritional Hx/Data Height 1.68 m Height (Calculated Centimeters) 167.6 Current Weight (lbs) 73.936 kg Weight (Calculated Kilograms) 73.9 Weight (Calculated Grams) 25748.6 [place] Body Weight 142 % [place] Body Weight 115 Body Mass Index (BMI) 26.3 GI Symptoms GI Symptoms None Last BM 08/27 Difficult in: None Skin Integrity/Comment: intact, no edema Current %PO Good (75-100%) Estimated Nutritional Goals BEE in Kcals: Using Current wt Calories/Kcals/Kg 25-30 Kcals Calculated 0516-0133 Protein: Using Current wt Protein g/k Protein Calculated 74 Fluid: ml 4789-9838 mL (1 ml/kcal) Nutritional Problem No current Nutrition Prob Problem n/a Etiology n/a Signs/Symptoms: n/a Malnutrition Alert Is there a minimum of two criteria No selected? Query Text:Check all the applicable criteria. A minimum of two criteria are recommended for diagnosis of either severe or non-severe malnutrition. Malnutrition Related to Morbid Obesity Malnutrition related to morbid obesity No Intervention/Recommendation Comments 1. Continue regular diet as ordered Expected Outcomes/Goals Expected Outcomes/Goals po intake >50% monitor wts, labs, skin, pO Intake
--- NOTE | 2017-08-31 21:39 | Progress Notes ---
DATE: SUBJECTIVE: The patient seen, chart reviewed, and discussed with staff. The patient continues to be actively psychotic, very paranoid, self isolative, and rambling in speech. He continues to feel that staff and others are trying to hurt him. He has, however, been compliant with medications. PLAN: The patient continues to be actively psychotic and unpredictable. It was felt that he will require continued inpatient care for stabilization and treatment. We will monitor patient on a daily basis for response to medications and titrate meds as needed. [facility]# [id number]
[2017-09-01] MEDS: Pantoprazole 40 mg EC Tab PO SCH (09:01)
--- NOTE | 2017-09-01 19:50 | Internal Medicine Prog Note ---
Internal Medicine Subjective - Subjective Service Date: 09/01/17 Patient seen and examined:: with staff Patient is:: awake, verbal, talking, confused Per staff patient has:: no adverse event (HE DENIES ANY PAIN OR SOB) Internal Medicine Objective - Results Result Diagrams: 08/21/17 15:35 08/21/17 15:35 Recent Labs: Laboratory Last Values WBC 5.6 Th/cmm (4.8-10.8) 08/21/17 15:35 RBC 3.72 Mil/cmm (3.80-5.80) L 08/21/17 15:35 Hgb 10.7 gm/dL (12-16) L 08/21/17 15:35 Hct 31.6 % (41.0-60) L 08/21/17 15:35 MCV 85.0 fl (80-99) 08/21/17 15:35 MCH 28.6 pg (27.0-31.0) 08/21/17 15:35 MCHC Differential 33.7 pg (28.0-36.0) 08/21/17 15:35 RDW 18.2 % (11.5-20.0) 08/21/17 15:35 Plt Count 228 Th/cmm (150-400) 08/21/17 15:35 MPV 9.3 fl 08/21/17 15:35 Neutrophils % 68.7 % (40.0-80.0) 08/21/17 15:35 Lymphocytes % 18.2 % (20.0-50.0) L 08/21/17 15:35 Monocytes % 12.5 % (2.0-10.0) H 08/21/17 15:35 Eosinophils % 0.6 % (0.0-5.0) 08/21/17 15:35 Basophils % 0.0 % (0.0-2.0) 08/21/17 15:35 Sodium 135 mEq/L (136-145) L 08/21/17 15:35 Potassium 4.6 mEq/L (3.5-5.1) 08/21/17 15:35 Chloride 109 mEq/L (98-107) H 08/21/17 15:35 Carbon Dioxide 18.4 mEq/L (21.0-31.0) L 08/21/17 15:35 Anion Gap 12.2 (7.0-16.0) 08/21/17 15:35 BUN 28 mg/dL (7-25) H 08/21/17 15:35 Creatinine 1.7 mg/dL (0.7-1.3) H 08/21/17 15:35 Est GFR ( Amer) TNP 08/21/17 15:35 Est GFR (Non-Af Amer) TNP 08/21/17 15:35 BUN/Creatinine Ratio 16.5 08/21/17 15:35 Glucose 104 mg/dL (70-105) 08/21/17 15:35 Hemoglobin A1c % 5.7 % (4.0-6.0) 08/21/17 15:35 Calcium 9.9 mg/dL (8.6-10.3) 08/21/17 15:35 Total Bilirubin 1.9 mg/dL (0.3-1.0) H 08/21/17 15:35 AST 16 U/L (13-39) 08/21/17 15:35 ALT 8 U/L (7-52) 08/21/17 15:35 Alkaline Phosphatase 78 U/L (34-104) 08/21/17 15:35 Total Protein 6.1 gm/dL (6.0-8.3) 08/21/17 15:35 Albumin 3.9 gm/dL (4.2-5.5) L 08/21/17 15:35 Globulin 2.2 gm/dL 08/21/17 15:35 Albumin/Globulin Ratio 1.8 (1.0-1.8) 08/21/17 15:35 Triglycerides 91 mg/dL (<150) 08/21/17 15:35 Cholesterol 111 mg/dL (<200) 08/21/17 15:35 LDL Cholesterol Direct 53 mg/dL (75-193) L 08/21/17 15:35 HDL Cholesterol 48 mg/dL (23-92) 08/21/17 15:35 TSH 0.55 uIU/ml (0.34-5.60) 08/21/17 15:35 Urine Source CLEAN C 08/21/17 16:44 Urine Color YELLOW 08/21/17 16:44 Urine Clarity CLEAR (CLEAR) 08/21/17 16:44 Urine pH 5.5 (4.6 - 8.0) 08/21/17 16:44 Ur Specific [place] 1.015 (1.005-1.030) 08/21/17 16:44 Urine Protein NEGATIVE mg/dL (NEGATIVE) 08/21/17 16:44 Urine Glucose (UA) NEGATIVE mg/dL (NEGATIVE) 02 16:44 Urine Ketones NEGATIVE mg/dL (NEGATIVE) 02 16:44 Urine Blood NEGATIVE (NEGATIVE) 02 16:44 Urine Nitrate NEGATIVE (NEGATIVE) 08/21/17 16:44 Urine Bilirubin NEGATIVE (NEGATIVE) 02 16:44 Urine Urobilinogen 0.2 E.U./dL (0.2 - 1.0) 02 16:44 Ur Leukocyte Esterase NEGATIVE (NEGATIVE) 08/21/17 16:44 Urine RBC NONE SEEN /hpf (0-5) 02 16:44 Urine WBC NONE SEEN /hpf (0-5) 02 16:44 Ur Epithelial Cells NONE SEEN /lpf (FEW) 08/21/17 16:44 Urine Bacteria NONE SEEN /hpf (NONE SEEN) 08/21/17 16:44 Salicylates < 25.0 mg/L (30.0-100.0) L 08/21/17 15:35 Urine Opiates Screen NEGATIVE (NEGATIVE) 08/21/17 16:44 Urine Methadone Screen NEGATIVE (NEGATIVE) 08/21/17 16:44 Acetaminophen < 10.0 ug/mL (10.0-30.0) L 08/21/17 15:35 Ur Barbiturates Screen NEGATIVE (NEGATIVE) 08/21/17 16:44 Ur Tricyclics Screen NEGATIVE (NEGATIVE) 08/21/17 16:44 Ur Phencyclidine Scrn NEGATIVE (NEGATIVE) 08/21/17 16:44 Amphetamines Screen NEGATIVE (NEGATIVE) 08/21/17 16:44 U Methamphetamines Scrn NEGATIVE (NEGATIVE) 08/21/17 16:44 U Benzodiazepines Scrn NEGATIVE (NEGATIVE) 08/21/17 16:44 U Cocaine Metab Screen NEGATIVE (NEGATIVE) 08/21/17 16:44 U Cannabinoids Screen NEGATIVE (NEGATIVE) 08/21/17 16:44 Ethyl Alcohol < 10 mg/dL (0-10) 08/21/17 15:35 RPR NONREACTIVE (NONREACTIVE) 08/21/17 15:35 - Physical Exam Vitals and I&O: Vital Signs Temp 98.8 F 08/31/17 16:14 Pulse 93 09/01/17 17:38 Resp 20 08/31/17 16:14 BP 108/69 09/01/17 17:38 Pulse Ox 95 08/31/17 16:14 Intake & Output 09/01/17 09/01/17 09/02/17 06:59 18:59 06:59 Other: Stool Characteristics Soft Soft Brown Brown Active Medications: Current Medications Acetaminophen (Tylenol) 650 mg PO Q4HR PRN PRN Reason: Pain or Fever >101 Stop: 10/20/17 22:34 Atorvastatin Calcium (Lipitor) 80 mg PO HS [facility] PRN Reason: Protocol Stop: 10/21/17 20:59 Last Admin: 08/31/17 20:33 Dose: Not Given Benztropine Mesylate (Cogentin) 0.5 mg PO BID [facility] Stop: 10/28/17 16:59 Last Admin: 09/01/17 17:38 Dose: 0.5 mg Docusate Sodium (Colace) 100 mg PO DAILY PRN PRN Reason: Constipation Stop: 10/20/17 22:34 Finasteride (Proscar) 5 mg PO DAILY [facility] PRN Reason: Protocol Stop: 10/21/17 08:59 Last Admin: 09/01/17 08:47 Dose: 5 mg Lorazepam (Ativan) 0.5 mg PO Q4HR PRN; Protocol PRN Reason: Anxiety Stop: 09/20/17 20:14 Last Admin: 08/31/17 10:35 Dose: 0.5 mg Magnesium Hydroxide (Milk Of Magnesia) 30 ml PO DAILY PRN PRN Reason: Constipation Stop: 10/20/17 22:34 Metoprolol Tartrate (Lopressor) 50 mg PO BID [facility] Stop: 10/21/17 08:59 Last Admin: 09/01/17 17:38 Dose: 50 mg Miscellaneous (Sacubitril/Valsartan [Entresto 49 Mg-51 Mg Tablet]) 1 tab PO BID [facility] Stop: 10/21/17 08:59 Pantoprazole Sodium (Protonix) 40 mg PO QDAC [facility] Stop: 10/21/17 16:29 Last Admin: 09/01/17 09:01 Dose: 40 mg Risperidone (Risperdal) 1 mg PO BID [facility] PRN Reason: Protocol Stop: 10/25/17 16:59 Last Admin: 09/01/17 17:38 Dose: 1 mg Rivaroxaban (Xarelto) 15 mg PO DAILY [facility] Stop: 10/21/17 16:59 Last Admin: 09/01/17 08:47 Dose: 15 mg Spironolactone (Aldactone) 25 mg PO DAILY [facility] Stop: 10/21/17 08:59 Last Admin: 09/01/17 08:48 Dose: 25 mg Zolpidem Tartrate (Ambien) 5 mg PO HS PRN PRN Reason: Insomnia Stop: 10/20/17 22:40 Last Admin: 08/29/17 21:47 Dose: 5 mg General: demented HEENT: NC/AT, PERRLA, EOMI, anicteric sclerae, throat clear Neck: Supple, No JVD, No thyromegaly, No LAD Lungs: CTAB Cardiovascular: RRR, Normal S1, Normal S2, without murmur Abdomen: non-tender, non-distended Extremities: clear Neurological: no change Internal Medicine Assmt/Plan - Assessment Assessment: 1.A.FIB. 2.HYPERLIPIDEMIA. 3.ANEMIA. 4.BPH. 5.DEMENTIA - Plan Plan: CONTINUE ON CURRENT MEDICATION AND DIET. Nutritional Asmnt/Malnutr-PDOC - Dietary Evaluation Malnutrition Findings (Please click <Entered> for more info): Nutritional Asmnt/Malnutrition Start: 08/28/17 13: 29 Text: Status: Complete Freq: Document 08/28/17 13:29 [email or web address] (Rec: 08/28/17 13:31 [email or web address]) Nutritional Asmnt/Malnutrition Patient General Information Nutritional Screening Low Risk Diagnosis depression Pertinent Medical Hx/Surgical Hx HTN, HLD, a fib, anemia, demential, colon ca, BPH Subjective Information pt depressed but eating 75-100 % of meals Current Diet Order/ Nutrition Support regular Patient / S.O Not Indicated Pertinent Medications colace, MOM, protonix, xarelto Pertinent Labs 08/21 Na: 135, BUN: 28, cr: 1.7 Nutritional Hx/Data Height 1.68 m Height (Calculated Centimeters) 167.6 Current Weight (lbs) 73.936 kg Weight (Calculated Kilograms) 73.9 Weight (Calculated Grams) 11623.6 [place] Body Weight 142 % [place] Body Weight 115 Body Mass Index (BMI) 26.3 GI Symptoms GI Symptoms None Last BM 08/27 Difficult in: None Skin Integrity/Comment: intact, no edema Current %PO Good (75-100%) Estimated Nutritional Goals BEE in Kcals: Using Current wt Calories/Kcals/Kg 25-30 Kcals Calculated 4154-1959 Protein: Using Current wt Protein g/k Protein Calculated 74 Fluid: ml 3037-1590 mL (1 ml/kcal) Nutritional Problem No current Nutrition Prob Problem n/a Etiology n/a Signs/Symptoms: n/a Malnutrition Alert Is there a minimum of two criteria No selected? Query Text:Check all the applicable criteria. A minimum of two criteria are recommended for diagnosis of either severe or non-severe malnutrition. Malnutrition Related to Morbid Obesity Malnutrition related to morbid obesity No Intervention/Recommendation Comments 1. Continue regular diet as ordered Expected Outcomes/Goals Expected Outcomes/Goals po intake >50% monitor wts, labs, skin, pO Intake
--- NOTE | 2017-09-02 01:45 | Progress Notes ---
DATE: 09/01/2017 SUBJECTIVE: The patient seen, chart reviewed, discussed with staff. The patient remains isolative, occlusive, still paranoid, and pressured at times. He is calmer. He would like to leave the hospital and try to find placement and then be readmitted to the hospital, I feel although that it is not a possibility. The patient is somewhat disoriented on exam. He is, however, redirectable. No agitation. He is taking his medications. No side effects, tolerating well. ASSESSMENT: The patient remains symptomatic, still with ongoing psychotic symptoms, paranoia. PLAN: We will continue to monitor. Given his ongoing symptoms, he is not safe for discharge. [facility]# [id number]
[2017-09-02] MEDS: Pantoprazole 40 mg EC Tab PO SCH (06:41)
--- NOTE | 2017-09-02 19:30 | Internal Medicine Prog Note ---
Internal Medicine Subjective - Subjective Patient is:: awake, verbal, talking, confused Per staff patient has:: no adverse event (HE DENIES ANY PAIN OR SOB) Internal Medicine Objective - Results Result Diagrams: 08/21/17 15:35 08/21/17 15:35 Recent Labs: Laboratory Last Values WBC 5.6 Th/cmm (4.8-10.8) 08/21/17 15:35 RBC 3.72 Mil/cmm (3.80-5.80) L 08/21/17 15:35 Hgb 10.7 gm/dL (12-16) L 08/21/17 15:35 Hct 31.6 % (41.0-60) L 08/21/17 15:35 MCV 85.0 fl (80-99) 08/21/17 15:35 MCH 28.6 pg (27.0-31.0) 08/21/17 15:35 MCHC Differential 33.7 pg (28.0-36.0) 08/21/17 15:35 RDW 18.2 % (11.5-20.0) 08/21/17 15:35 Plt Count 228 Th/cmm (150-400) 08/21/17 15:35 MPV 9.3 fl 08/21/17 15:35 Neutrophils % 68.7 % (40.0-80.0) 08/21/17 15:35 Lymphocytes % 18.2 % (20.0-50.0) L 08/21/17 15:35 Monocytes % 12.5 % (2.0-10.0) H 08/21/17 15:35 Eosinophils % 0.6 % (0.0-5.0) 08/21/17 15:35 Basophils % 0.0 % (0.0-2.0) 08/21/17 15:35 Sodium 135 mEq/L (136-145) L 08/21/17 15:35 Potassium 4.6 mEq/L (3.5-5.1) 08/21/17 15:35 Chloride 109 mEq/L (98-107) H 08/21/17 15:35 Carbon Dioxide 18.4 mEq/L (21.0-31.0) L 08/21/17 15:35 Anion Gap 12.2 (7.0-16.0) 08/21/17 15:35 BUN 28 mg/dL (7-25) H 08/21/17 15:35 Creatinine 1.7 mg/dL (0.7-1.3) H 08/21/17 15:35 Est GFR ( Amer) TNP 08/21/17 15:35 Est GFR (Non-Af Amer) TNP 08/21/17 15:35 BUN/Creatinine Ratio 16.5 08/21/17 15:35 Glucose 104 mg/dL (70-105) 08/21/17 15:35 Hemoglobin A1c % 5.7 % (4.0-6.0) 08/21/17 15:35 Calcium 9.9 mg/dL (8.6-10.3) 08/21/17 15:35 Total Bilirubin 1.9 mg/dL (0.3-1.0) H 08/21/17 15:35 AST 16 U/L (13-39) 08/21/17 15:35 ALT 8 U/L (7-52) 08/21/17 15:35 Alkaline Phosphatase 78 U/L (34-104) 08/21/17 15:35 Total Protein 6.1 gm/dL (6.0-8.3) 08/21/17 15:35 Albumin 3.9 gm/dL (4.2-5.5) L 08/21/17 15:35 Globulin 2.2 gm/dL 08/21/17 15:35 Albumin/Globulin Ratio 1.8 (1.0-1.8) 08/21/17 15:35 Triglycerides 91 mg/dL (<150) 08/21/17 15:35 Cholesterol 111 mg/dL (<200) 08/21/17 15:35 LDL Cholesterol Direct 53 mg/dL (75-193) L 08/21/17 15:35 HDL Cholesterol 48 mg/dL (23-92) 08/21/17 15:35 TSH 0.55 uIU/ml (0.34-5.60) 08/21/17 15:35 Urine Source CLEAN C 08/21/17 16:44 Urine Color YELLOW 08/21/17 16:44 Urine Clarity CLEAR (CLEAR) 08/21/17 16:44 Urine pH 5.5 (4.6 - 8.0) 08/21/17 16:44 Ur Specific [place] 1.015 (1.005-1.030) 08/21/17 16:44 Urine Protein NEGATIVE mg/dL (NEGATIVE) 08/21/17 16:44 Urine Glucose (UA) NEGATIVE mg/dL (NEGATIVE) 08/21/17 16:44 Urine Ketones NEGATIVE mg/dL (NEGATIVE) 02 16:44 Urine Blood NEGATIVE (NEGATIVE) 08/21/17 16:44 Urine Nitrate NEGATIVE (NEGATIVE) 08/21/17 16:44 Urine Bilirubin NEGATIVE (NEGATIVE) 08/21/17 16:44 Urine Urobilinogen 0.2 E.U./dL (0.2 - 1.0) 02 16:44 Ur Leukocyte Esterase NEGATIVE (NEGATIVE) 08/21/17 16:44 Urine RBC NONE SEEN /hpf (0-5) 08/21/17 16:44 Urine WBC NONE SEEN /hpf (0-5) 08/21/17 16:44 Ur Epithelial Cells NONE SEEN /lpf (FEW) 08/21/17 16:44 Urine Bacteria NONE SEEN /hpf (NONE SEEN) 08/21/17 16:44 Salicylates < 25.0 mg/L (30.0-100.0) L 08/21/17 15:35 Urine Opiates Screen NEGATIVE (NEGATIVE) 08/21/17 16:44 Urine Methadone Screen NEGATIVE (NEGATIVE) 08/21/17 16:44 Acetaminophen < 10.0 ug/mL (10.0-30.0) L 08/21/17 15:35 Ur Barbiturates Screen NEGATIVE (NEGATIVE) 08/21/17 16:44 Ur Tricyclics Screen NEGATIVE (NEGATIVE) 08/21/17 16:44 Ur Phencyclidine Scrn NEGATIVE (NEGATIVE) 08/21/17 16:44 Amphetamines Screen NEGATIVE (NEGATIVE) 08/21/17 16:44 U Methamphetamines Scrn NEGATIVE (NEGATIVE) 08/21/17 16:44 U Benzodiazepines Scrn NEGATIVE (NEGATIVE) 08/21/17 16:44 U Cocaine Metab Screen NEGATIVE (NEGATIVE) 08/21/17 16:44 U Cannabinoids Screen NEGATIVE (NEGATIVE) 08/21/17 16:44 Ethyl Alcohol < 10 mg/dL (0-10) 08/21/17 15:35 RPR NONREACTIVE (NONREACTIVE) 08/21/17 15:35 - Physical Exam Vitals and I&O: Vital Signs Temp 97.6 F 09/02/17 16:30 Pulse 111 09/02/17 18:36 Resp 18 09/02/17 16:30 BP 139/82 09/02/17 18:36 Pulse Ox 98 09/02/17 16:30 Intake & Output 09/02/17 09/02/17 09/03/17 06:59 18:59 06:59 Other: Stool Characteristics Soft Soft Brown Brown Active Medications: Current Medications Acetaminophen (Tylenol) 650 mg PO Q4HR PRN PRN Reason: Pain or Fever >101 Stop: 10/20/17 22:34 Atorvastatin Calcium (Lipitor) 80 mg PO HS [facility] PRN Reason: Protocol Stop: 10/21/17 20:59 Last Admin: 09/01/17 21:09 Dose: 80 mg Benztropine Mesylate (Cogentin) 0.5 mg PO BID [facility] Stop: 10/28/17 16:59 Last Admin: 09/02/17 18:36 Dose: 0.5 mg Docusate Sodium (Colace) 100 mg PO DAILY PRN PRN Reason: Constipation Stop: 10/20/17 22:34 Finasteride (Proscar) 5 mg PO DAILY [facility] PRN Reason: Protocol Stop: 10/21/17 08:59 Last Admin: 09/02/17 11:06 Dose: 5 mg Lorazepam (Ativan) 0.5 mg PO Q4HR PRN; Protocol PRN Reason: Anxiety Stop: 09/20/17 20:14 Last Admin: 08/31/17 10:35 Dose: 0.5 mg Magnesium Hydroxide (Milk Of Magnesia) 30 ml PO DAILY PRN PRN Reason: Constipation Stop: 10/20/17 22:34 Metoprolol Tartrate (Lopressor) 50 mg PO BID [facility] Stop: 10/21/17 08:59 Last Admin: 09/02/17 18:36 Dose: 50 mg Miscellaneous (Sacubitril/Valsartan [Entresto 49 Mg-51 Mg Tablet]) 1 tab PO BID [facility] Stop: 10/21/17 08:59 Pantoprazole Sodium (Protonix) 40 mg PO QDAC [facility] Stop: 10/21/17 16:29 Last Admin: 09/02/17 06:41 Dose: 40 mg Risperidone (Risperdal) 1 mg PO BID [facility] PRN Reason: Protocol Stop: 10/25/17 16:59 Last Admin: 09/02/17 18:36 Dose: 1 mg Rivaroxaban (Xarelto) 15 mg PO DAILY [facility] Stop: 10/21/17 16:59 Last Admin: 09/02/17 11:08 Dose: 15 mg Spironolactone (Aldactone) 25 mg PO DAILY [facility] Stop: 10/21/17 08:59 Last Admin: 09/02/17 11:07 Dose: 25 mg Zolpidem Tartrate (Ambien) 5 mg PO HS PRN PRN Reason: Insomnia Stop: 10/20/17 22:40 Last Admin: 08/29/17 21:47 Dose: 5 mg General: demented HEENT: NC/AT, PERRLA, EOMI, anicteric sclerae, throat clear Neck: Supple, No JVD, No thyromegaly, No LAD Lungs: CTAB Cardiovascular: RRR, Normal S1, Normal S2, without murmur Abdomen: non-tender, non-distended Extremities: clear Neurological: no change Internal Medicine Assmt/Plan - Assessment Assessment: 1.A.FIB. 2.HYPERLIPIDEMIA. 3.ANEMIA. 4.BPH. 5.DEMENTIA - Plan Plan: CONTINUE ON CURRENT MEDICATION AND DIET. Nutritional Asmnt/Malnutr-PDOC - Dietary Evaluation Malnutrition Findings (Please click <Entered> for more info): Nutritional Asmnt/Malnutrition Start: 08/28/17 13: 29 Text: Status: Complete Freq: Document 08/28/17 13:29 [email or web address] (Rec: 08/28/17 13:31 [email or web address]) Nutritional Asmnt/Malnutrition Patient General Information Nutritional Screening Low Risk Diagnosis depression Pertinent Medical Hx/Surgical Hx HTN, HLD, a fib, anemia, demential, colon ca, BPH Subjective Information pt depressed but eating 75-100 % of meals Current Diet Order/ Nutrition Support regular Patient / S.O Not Indicated Pertinent Medications colace, MOM, protonix, xarelto Pertinent Labs 08/21 Na: 135, BUN: 28, cr: 1.7 Nutritional Hx/Data Height 1.68 m Height (Calculated Centimeters) 167.6 Current Weight (lbs) 73.936 kg Weight (Calculated Kilograms) 73.9 Weight (Calculated Grams) 88823.6 [place] Body Weight 142 % [place] Body Weight 115 Body Mass Index (BMI) 26.3 GI Symptoms GI Symptoms None Last BM 08/27 Difficult in: None Skin Integrity/Comment: intact, no edema Current %PO Good (75-100%) Estimated Nutritional Goals BEE in Kcals: Using Current wt Calories/Kcals/Kg 25-30 Kcals Calculated 3453-7262 Protein: Using Current wt Protein g/k Protein Calculated 74 Fluid: ml 8043-9430 mL (1 ml/kcal) Nutritional Problem No current Nutrition Prob Problem n/a Etiology n/a Signs/Symptoms: n/a Malnutrition Alert Is there a minimum of two criteria No selected? Query Text:Check all the applicable criteria. A minimum of two criteria are recommended for diagnosis of either severe or non-severe malnutrition. Malnutrition Related to Morbid Obesity Malnutrition related to morbid obesity No Intervention/Recommendation Comments 1. Continue regular diet as ordered Expected Outcomes/Goals Expected Outcomes/Goals po intake >50% monitor wts, labs, skin, pO Intake
--- NOTE | 2017-09-03 00:57 | Progress Notes ---
DATE: 09/02/2017 SUBJECTIVE: The patient remained somewhat reclusive and isolative, still paranoid, at times intrusive, but calmer, some disorientation noted, but seems to be more amenable to treatment taking his medications. No side effects. No agitation, depression improved, still with no place to go. We are trying to work hard on placement and confirm a safe discharge plan. ASSESSMENT: The patient remains symptomatic, still with ongoing paranoia, but improvement noted, calmer. PLAN: We will continue to monitor, continue to titrate and adjust medications. He seems to be tolerating Risperdal well. JOB# [id number]
[2017-09-03] MEDS: Pantoprazole 40 mg EC Tab PO SCH (06:34)
--- NOTE | 2017-09-03 13:18 | Progress Notes ---
DATE: 09/03/2017 SUBJECTIVE: The patient seen, chart reviewed, discussed with staff. The patient calmer, more cooperative, concerned about placement, very anxious, remains reclusive and isolatory, still with some paranoid thinking, but less. Seems to be tolerant of Risperdal. Sleeping well, eating well, mostly keeps to himself. MEDICATIONS: Reviewed. ASSESSMENT: The patient remains symptomatic, still overwhelmed, anxious, but improvement noted. PLAN: We will continue to monitor. Continue Risperdal at current dose. I tried to contact the son yesterday. I got through to the voicemail but the voice mailbox was full. I could not leave a message. JOB# [id number]
--- NOTE | 2017-09-03 21:02 | Internal Medicine Prog Note ---
Internal Medicine Subjective - Subjective Service Date: 09/03/17 Patient seen and examined:: with staff Patient is:: awake, verbal, talking, confused Per staff patient has:: no adverse event (HE DENIES ANY PAIN OR SOB) Internal Medicine Objective - Results Result Diagrams: 08/21/17 15:35 08/21/17 15:35 Recent Labs: Laboratory Last Values WBC 5.6 Th/cmm (4.8-10.8) 08/21/17 15:35 RBC 3.72 Mil/cmm (3.80-5.80) L 08/21/17 15:35 Hgb 10.7 gm/dL (12-16) L 08/21/17 15:35 Hct 31.6 % (41.0-60) L 08/21/17 15:35 MCV 85.0 fl (80-99) 08/21/17 15:35 MCH 28.6 pg (27.0-31.0) 08/21/17 15:35 MCHC Differential 33.7 pg (28.0-36.0) 08/21/17 15:35 RDW 18.2 % (11.5-20.0) 08/21/17 15:35 Plt Count 228 Th/cmm (150-400) 08/21/17 15:35 MPV 9.3 fl 08/21/17 15:35 Neutrophils % 68.7 % (40.0-80.0) 08/21/17 15:35 Lymphocytes % 18.2 % (20.0-50.0) L 08/21/17 15:35 Monocytes % 12.5 % (2.0-10.0) H 08/21/17 15:35 Eosinophils % 0.6 % (0.0-5.0) 08/21/17 15:35 Basophils % 0.0 % (0.0-2.0) 08/21/17 15:35 Sodium 135 mEq/L (136-145) L 08/21/17 15:35 Potassium 4.6 mEq/L (3.5-5.1) 08/21/17 15:35 Chloride 109 mEq/L (98-107) H 08/21/17 15:35 Carbon Dioxide 18.4 mEq/L (21.0-31.0) L 08/21/17 15:35 Anion Gap 12.2 (7.0-16.0) 08/21/17 15:35 BUN 28 mg/dL (7-25) H 08/21/17 15:35 Creatinine 1.7 mg/dL (0.7-1.3) H 08/21/17 15:35 Est GFR ( Amer) TNP 08/21/17 15:35 Est GFR (Non-Af Amer) TNP 08/21/17 15:35 BUN/Creatinine Ratio 16.5 08/21/17 15:35 Glucose 104 mg/dL (70-105) 08/21/17 15:35 Hemoglobin A1c % 5.7 % (4.0-6.0) 08/21/17 15:35 Calcium 9.9 mg/dL (8.6-10.3) 08/21/17 15:35 Total Bilirubin 1.9 mg/dL (0.3-1.0) H 08/21/17 15:35 AST 16 U/L (13-39) 08/21/17 15:35 ALT 8 U/L (7-52) 08/21/17 15:35 Alkaline Phosphatase 78 U/L (34-104) 08/21/17 15:35 Total Protein 6.1 gm/dL (6.0-8.3) 08/21/17 15:35 Albumin 3.9 gm/dL (4.2-5.5) L 08/21/17 15:35 Globulin 2.2 gm/dL 08/21/17 15:35 Albumin/Globulin Ratio 1.8 (1.0-1.8) 08/21/17 15:35 Triglycerides 91 mg/dL (<150) 08/21/17 15:35 Cholesterol 111 mg/dL (<200) 08/21/17 15:35 LDL Cholesterol Direct 53 mg/dL (75-193) L 08/21/17 15:35 HDL Cholesterol 48 mg/dL (23-92) 08/21/17 15:35 TSH 0.55 uIU/ml (0.34-5.60) 08/21/17 15:35 Urine Source CLEAN C 08/21/17 16:44 Urine Color YELLOW 08/21/17 16:44 Urine Clarity CLEAR (CLEAR) 08/21/17 16:44 Urine pH 5.5 (4.6 - 8.0) 08/21/17 16:44 Ur Specific [place] 1.015 (1.005-1.030) 08/21/17 16:44 Urine Protein NEGATIVE mg/dL (NEGATIVE) 08/21/17 16:44 Urine Glucose (UA) NEGATIVE mg/dL (NEGATIVE) 02 16:44 Urine Ketones NEGATIVE mg/dL (NEGATIVE) 02 16:44 Urine Blood NEGATIVE (NEGATIVE) 02 16:44 Urine Nitrate NEGATIVE (NEGATIVE) 08/21/17 16:44 Urine Bilirubin NEGATIVE (NEGATIVE) 02 16:44 Urine Urobilinogen 0.2 E.U./dL (0.2 - 1.0) 02 16:44 Ur Leukocyte Esterase NEGATIVE (NEGATIVE) 08/21/17 16:44 Urine RBC NONE SEEN /hpf (0-5) 02 16:44 Urine WBC NONE SEEN /hpf (0-5) 02 16:44 Ur Epithelial Cells NONE SEEN /lpf (FEW) 08/21/17 16:44 Urine Bacteria NONE SEEN /hpf (NONE SEEN) 08/21/17 16:44 Salicylates < 25.0 mg/L (30.0-100.0) L 08/21/17 15:35 Urine Opiates Screen NEGATIVE (NEGATIVE) 08/21/17 16:44 Urine Methadone Screen NEGATIVE (NEGATIVE) 08/21/17 16:44 Acetaminophen < 10.0 ug/mL (10.0-30.0) L 08/21/17 15:35 Ur Barbiturates Screen NEGATIVE (NEGATIVE) 08/21/17 16:44 Ur Tricyclics Screen NEGATIVE (NEGATIVE) 08/21/17 16:44 Ur Phencyclidine Scrn NEGATIVE (NEGATIVE) 08/21/17 16:44 Amphetamines Screen NEGATIVE (NEGATIVE) 08/21/17 16:44 U Methamphetamines Scrn NEGATIVE (NEGATIVE) 08/21/17 16:44 U Benzodiazepines Scrn NEGATIVE (NEGATIVE) 08/21/17 16:44 U Cocaine Metab Screen NEGATIVE (NEGATIVE) 08/21/17 16:44 U Cannabinoids Screen NEGATIVE (NEGATIVE) 08/21/17 16:44 Ethyl Alcohol < 10 mg/dL (0-10) 08/21/17 15:35 RPR NONREACTIVE (NONREACTIVE) 08/21/17 15:35 - Physical Exam Vitals and I&O: Vital Signs Temp 97.8 F 09/03/17 16:24 Pulse 92 09/03/17 18:17 Resp 20 09/03/17 16:24 BP 117/75 09/03/17 18:17 Pulse Ox 98 09/03/17 16:24 Intake & Output 09/03/17 09/03/17 09/04/17 06:59 18:59 06:59 Intake Total 250 1320 Balance 250 1320 Intake: Oral 250 1320 Other: # Voids 2 3 # Bowel Movements 0 0 Stool Characteristics Soft Soft Soft Brown Brown Brown Active Medications: Current Medications Acetaminophen (Tylenol) 650 mg PO Q4HR PRN PRN Reason: Pain or Fever >101 Stop: 10/20/17 22:34 Atorvastatin Calcium (Lipitor) 80 mg PO HS ELVIN PRN Reason: Protocol Stop: 10/21/17 20:59 Last Admin: 09/02/17 20:58 Dose: 80 mg Benztropine Mesylate (Cogentin) 0.5 mg PO BID [facility] Stop: 10/28/17 16:59 Last Admin: 09/03/17 18:18 Dose: 0.5 mg Docusate Sodium (Colace) 100 mg PO DAILY PRN PRN Reason: Constipation Stop: 10/20/17 22:34 Finasteride (Proscar) 5 mg PO DAILY ELVIN PRN Reason: Protocol Stop: 10/21/17 08:59 Last Admin: 09/03/17 10:16 Dose: 5 mg Lorazepam (Ativan) 0.5 mg PO Q4HR PRN; Protocol PRN Reason: Anxiety Stop: 09/20/17 20:14 Last Admin: 08/31/17 10:35 Dose: 0.5 mg Magnesium Hydroxide (Milk Of Magnesia) 30 ml PO DAILY PRN PRN Reason: Constipation Stop: 10/20/17 22:34 Metoprolol Tartrate (Lopressor) 50 mg PO BID [facility] Stop: 10/21/17 08:59 Last Admin: 09/03/17 18:17 Dose: 50 mg Miscellaneous (Sacubitril/Valsartan [Entresto 49 Mg-51 Mg Tablet]) 1 tab PO BID [facility] Stop: 10/21/17 08:59 Pantoprazole Sodium (Protonix) 40 mg PO QDAC [facility] Stop: 10/21/17 16:29 Last Admin: 09/03/17 06:34 Dose: 40 mg Risperidone (Risperdal) 1 mg PO BID [facility] PRN Reason: Protocol Stop: 10/25/17 16:59 Last Admin: 09/03/17 18:16 Dose: 1 mg Rivaroxaban (Xarelto) 15 mg PO DAILY [facility] Stop: 10/21/17 16:59 Last Admin: 09/03/17 10:15 Dose: 15 mg Spironolactone (Aldactone) 25 mg PO DAILY [facility] Stop: 10/21/17 08:59 Last Admin: 09/03/17 10:17 Dose: 25 mg Zolpidem Tartrate (Ambien) 5 mg PO HS PRN PRN Reason: Insomnia Stop: 10/20/17 22:40 Last Admin: 08/29/17 21:47 Dose: 5 mg General: demented HEENT: NC/AT, PERRLA, EOMI, anicteric sclerae, throat clear Neck: Supple, No JVD, No thyromegaly, No LAD Lungs: CTAB Cardiovascular: RRR, Normal S1, Normal S2, without murmur Abdomen: non-tender, non-distended Extremities: clear Neurological: no change Internal Medicine Assmt/Plan - Assessment Assessment: 1.A.FIB. 2.HYPERLIPIDEMIA. 3.ANEMIA. 4.BPH. 5.DEMENTIA - Plan Plan: CONTINUE ON CURRENT MEDICATION AND DIET. Nutritional Asmnt/Malnutr-PDOC - Dietary Evaluation Malnutrition Findings (Please click <Entered> for more info): Nutritional Asmnt/Malnutrition Start: 08/28/17 13: 29 Text: Status: Complete Freq: Document 08/28/17 13:29 [email or web address] (Rec: 08/28/17 13:31 [email or web address]) Nutritional Asmnt/Malnutrition Patient General Information Nutritional Screening Low Risk Diagnosis depression Pertinent Medical Hx/Surgical Hx HTN, HLD, a fib, anemia, demential, colon ca, BPH Subjective Information pt depressed but eating 75-100 % of meals Current Diet Order/ Nutrition Support regular Patient / S.O Not Indicated Pertinent Medications colace, MOM, protonix, xarelto Pertinent Labs 08/21 Na: 135, BUN: 28, cr: 1.7 Nutritional Hx/Data Height 1.68 m Height (Calculated Centimeters) 167.6 Current Weight (lbs) 73.936 kg Weight (Calculated Kilograms) 73.9 Weight (Calculated Grams) 29779.6 [place] Body Weight 142 % [place] Body Weight 115 Body Mass Index (BMI) 26.3 GI Symptoms GI Symptoms None Last BM 2/14 Difficult in: None Skin Integrity/Comment: intact, no edema Current %PO Good (75-100%) Estimated Nutritional Goals BEE in Kcals: Using Current wt Calories/Kcals/Kg 25-30 Kcals Calculated 6285-1415 Protein: Using Current wt Protein g/k Protein Calculated 74 Fluid: ml 4671-8242 mL (1 ml/kcal) Nutritional Problem No current Nutrition Prob Problem n/a Etiology n/a Signs/Symptoms: n/a Malnutrition Alert Is there a minimum of two criteria No selected? Query Text:Check all the applicable criteria. A minimum of two criteria are recommended for diagnosis of either severe or non-severe malnutrition. Malnutrition Related to Morbid Obesity Malnutrition related to morbid obesity No Intervention/Recommendation Comments 1. Continue regular diet as ordered Expected Outcomes/Goals Expected Outcomes/Goals po intake >50% monitor wts, labs, skin, pO Intake
[2017-09-04] MEDS: Pantoprazole 40 mg EC Tab PO SCH (06:40)
--- NOTE | 2017-09-04 15:53 | Internal Medicine Prog Note ---
Internal Medicine Subjective - Subjective Service Date: 09/04/17 Patient seen and examined:: with staff Patient is:: awake, verbal, talking, confused Per staff patient has:: no adverse event (HE DENIES ANY PAIN OR SOB) Internal Medicine Objective - Results Result Diagrams: 08/21/17 15:35 08/21/17 15:35 Recent Labs: Laboratory Last Values WBC 5.6 Th/cmm (4.8-10.8) 08/21/17 15:35 RBC 3.72 Mil/cmm (3.80-5.80) L 08/21/17 15:35 Hgb 10.7 gm/dL (12-16) L 08/21/17 15:35 Hct 31.6 % (41.0-60) L 08/21/17 15:35 MCV 85.0 fl (80-99) 08/21/17 15:35 MCH 28.6 pg (27.0-31.0) 08/21/17 15:35 MCHC Differential 33.7 pg (28.0-36.0) 08/21/17 15:35 RDW 18.2 % (11.5-20.0) 08/21/17 15:35 Plt Count 228 Th/cmm (150-400) 08/21/17 15:35 MPV 9.3 fl 08/21/17 15:35 Neutrophils % 68.7 % (40.0-80.0) 08/21/17 15:35 Lymphocytes % 18.2 % (20.0-50.0) L 08/21/17 15:35 Monocytes % 12.5 % (2.0-10.0) H 08/21/17 15:35 Eosinophils % 0.6 % (0.0-5.0) 08/21/17 15:35 Basophils % 0.0 % (0.0-2.0) 08/21/17 15:35 Sodium 135 mEq/L (136-145) L 08/21/17 15:35 Potassium 4.6 mEq/L (3.5-5.1) 08/21/17 15:35 Chloride 109 mEq/L (98-107) H 08/21/17 15:35 Carbon Dioxide 18.4 mEq/L (21.0-31.0) L 08/21/17 15:35 Anion Gap 12.2 (7.0-16.0) 08/21/17 15:35 BUN 28 mg/dL (7-25) H 08/21/17 15:35 Creatinine 1.7 mg/dL (0.7-1.3) H 08/21/17 15:35 Est GFR ( Amer) TNP 08/21/17 15:35 Est GFR (Non-Af Amer) TNP 08/21/17 15:35 BUN/Creatinine Ratio 16.5 08/21/17 15:35 Glucose 104 mg/dL (70-105) 08/21/17 15:35 Hemoglobin A1c % 5.7 % (4.0-6.0) 08/21/17 15:35 Calcium 9.9 mg/dL (8.6-10.3) 08/21/17 15:35 Total Bilirubin 1.9 mg/dL (0.3-1.0) H 08/21/17 15:35 AST 16 U/L (13-39) 08/21/17 15:35 ALT 8 U/L (7-52) 08/21/17 15:35 Alkaline Phosphatase 78 U/L (34-104) 08/21/17 15:35 Total Protein 6.1 gm/dL (6.0-8.3) 08/21/17 15:35 Albumin 3.9 gm/dL (4.2-5.5) L 08/21/17 15:35 Globulin 2.2 gm/dL 08/21/17 15:35 Albumin/Globulin Ratio 1.8 (1.0-1.8) 08/21/17 15:35 Triglycerides 91 mg/dL (<150) 08/21/17 15:35 Cholesterol 111 mg/dL (<200) 08/21/17 15:35 LDL Cholesterol Direct 53 mg/dL (75-193) L 08/21/17 15:35 HDL Cholesterol 48 mg/dL (23-92) 08/21/17 15:35 TSH 0.55 uIU/ml (0.34-5.60) 08/21/17 15:35 Urine Source CLEAN C 08/21/17 16:44 Urine Color YELLOW 08/21/17 16:44 Urine Clarity CLEAR (CLEAR) 08/21/17 16:44 Urine pH 5.5 (4.6 - 8.0) 08/21/17 16:44 Ur Specific [place] 1.015 (1.005-1.030) 08/21/17 16:44 Urine Protein NEGATIVE mg/dL (NEGATIVE) 08/21/17 16:44 Urine Glucose (UA) NEGATIVE mg/dL (NEGATIVE) 02 16:44 Urine Ketones NEGATIVE mg/dL (NEGATIVE) 02 16:44 Urine Blood NEGATIVE (NEGATIVE) 02 16:44 Urine Nitrate NEGATIVE (NEGATIVE) 08/21/17 16:44 Urine Bilirubin NEGATIVE (NEGATIVE) 02 16:44 Urine Urobilinogen 0.2 E.U./dL (0.2 - 1.0) 02 16:44 Ur Leukocyte Esterase NEGATIVE (NEGATIVE) 08/21/17 16:44 Urine RBC NONE SEEN /hpf (0-5) 02 16:44 Urine WBC NONE SEEN /hpf (0-5) 02 16:44 Ur Epithelial Cells NONE SEEN /lpf (FEW) 08/21/17 16:44 Urine Bacteria NONE SEEN /hpf (NONE SEEN) 08/21/17 16:44 Salicylates < 25.0 mg/L (30.0-100.0) L 08/21/17 15:35 Urine Opiates Screen NEGATIVE (NEGATIVE) 08/21/17 16:44 Urine Methadone Screen NEGATIVE (NEGATIVE) 08/21/17 16:44 Acetaminophen < 10.0 ug/mL (10.0-30.0) L 08/21/17 15:35 Ur Barbiturates Screen NEGATIVE (NEGATIVE) 08/21/17 16:44 Ur Tricyclics Screen NEGATIVE (NEGATIVE) 08/21/17 16:44 Ur Phencyclidine Scrn NEGATIVE (NEGATIVE) 08/21/17 16:44 Amphetamines Screen NEGATIVE (NEGATIVE) 08/21/17 16:44 U Methamphetamines Scrn NEGATIVE (NEGATIVE) 08/21/17 16:44 U Benzodiazepines Scrn NEGATIVE (NEGATIVE) 08/21/17 16:44 U Cocaine Metab Screen NEGATIVE (NEGATIVE) 08/21/17 16:44 U Cannabinoids Screen NEGATIVE (NEGATIVE) 08/21/17 16:44 Ethyl Alcohol < 10 mg/dL (0-10) 08/21/17 15:35 RPR NONREACTIVE (NONREACTIVE) 08/21/17 15:35 - Physical Exam Vitals and I&O: Vital Signs Temp 98.1 F 09/04/17 06:40 Pulse 63 09/04/17 10:25 Resp 19 09/04/17 06:40 BP 110/70 09/04/17 10:25 Pulse Ox 96 09/04/17 06:40 Intake & Output 09/03/17 09/04/17 09/04/17 18:59 06:59 18:59 Intake Total 1320 120 Balance 1320 120 Intake: Oral 1320 120 Other: # Voids 3 3 # Bowel Movements 0 Stool Characteristics Soft Soft Brown Brown Active Medications: Current Medications Acetaminophen (Tylenol) 650 mg PO Q4HR PRN PRN Reason: Pain or Fever >101 Stop: 10/20/17 22:34 Atorvastatin Calcium (Lipitor) 80 mg PO HS [facility]VIN PRN Reason: Protocol Stop: 10/21/17 20:59 Last Admin: 09/03/17 21:58 Dose: 80 mg Benztropine Mesylate (Cogentin) 0.5 mg PO BID [facility] Stop: 10/28/17 16:59 Last Admin: 09/04/17 10:24 Dose: 0.5 mg Docusate Sodium (Colace) 100 mg PO DAILY PRN PRN Reason: Constipation Stop: 10/20/17 22:34 Finasteride (Proscar) 5 mg PO DAILY [facility]VIN PRN Reason: Protocol Stop: 10/21/17 08:59 Last Admin: 09/04/17 10:27 Dose: 5 mg Lorazepam (Ativan) 0.5 mg PO Q4HR PRN; Protocol PRN Reason: Anxiety Stop: 09/20/17 20:14 Last Admin: 08/31/17 10:35 Dose: 0.5 mg Magnesium Hydroxide (Milk Of Magnesia) 30 ml PO DAILY PRN PRN Reason: Constipation Stop: 10/20/17 22:34 Metoprolol Tartrate (Lopressor) 50 mg PO BID [facility] Stop: 10/21/17 08:59 Last Admin: 09/04/17 10:25 Dose: Not Given Pantoprazole Sodium (Protonix) 40 mg PO QDAC [facility] Stop: 10/21/17 16:29 Last Admin: 09/04/17 06:40 Dose: 40 mg Risperidone (Risperdal) 1 mg PO BID [facility] PRN Reason: Protocol Stop: 10/25/17 16:59 Last Admin: 09/04/17 10:24 Dose: 1 mg Rivaroxaban (Xarelto) 15 mg PO DAILY [facility] Stop: 10/21/17 16:59 Last Admin: 09/04/17 10:25 Dose: 15 mg Spironolactone (Aldactone) 25 mg PO DAILY [facility] Stop: 10/21/17 08:59 Last Admin: 09/04/17 10:25 Dose: 25 mg Zolpidem Tartrate (Ambien) 5 mg PO HS PRN PRN Reason: Insomnia Stop: 10/20/17 22:40 Last Admin: 08/29/17 21:47 Dose: 5 mg General: demented HEENT: NC/AT, PERRLA, EOMI, anicteric sclerae, throat clear Neck: Supple, No JVD, No thyromegaly, No LAD Lungs: CTAB Cardiovascular: RRR, Normal S1, Normal S2, without murmur Abdomen: non-tender, non-distended Extremities: clear Neurological: no change Internal Medicine Assmt/Plan - Assessment Assessment: 1.A.FIB. 2.HYPERLIPIDEMIA. 3.ANEMIA. 4.BPH. 5.DEMENTIA - Plan Plan: CONTINUE ON CURRENT MEDICATION AND DIET. Nutritional Asmnt/Malnutr-PDOC - Dietary Evaluation Malnutrition Findings (Please click <Entered> for more info): Nutritional Asmnt/Malnutrition Start: 08/28/17 13: 29 Text: Status: Complete Freq: Document 08/28/17 13:29 [email or web address] (Rec: 08/28/17 13:31 [email or web address]) Nutritional Asmnt/Malnutrition Patient General Information Nutritional Screening Low Risk Diagnosis depression Pertinent Medical Hx/Surgical Hx HTN, HLD, a fib, anemia, demential, colon ca, BPH Subjective Information pt depressed but eating 75-100 % of meals Current Diet Order/ Nutrition Support regular Patient / S.O Not Indicated Pertinent Medications colace, MOM, protonix, xarelto Pertinent Labs 08/21 Na: 135, BUN: 28, cr: 1.7 Nutritional Hx/Data Height 1.68 m Height (Calculated Centimeters) 167.6 Current Weight (lbs) 73.936 kg Weight (Calculated Kilograms) 73.9 Weight (Calculated Grams) 69814.6 [place] Body Weight 142 % [place] Body Weight 115 Body Mass Index (BMI) 26.3 GI Symptoms GI Symptoms None Last BM 08/27 Difficult in: None Skin Integrity/Comment: intact, no edema Current %PO Good (75-100%) Estimated Nutritional Goals BEE in Kcals: Using Current wt Calories/Kcals/Kg 25-30 Kcals Calculated 3754-1460 Protein: Using Current wt Protein g/k Protein Calculated 74 Fluid: ml 6595-2855 mL (1 ml/kcal) Nutritional Problem No current Nutrition Prob Problem n/a Etiology n/a Signs/Symptoms: n/a Malnutrition Alert Is there a minimum of two criteria No selected? Query Text:Check all the applicable criteria. A minimum of two criteria are recommended for diagnosis of either severe or non-severe malnutrition. Malnutrition Related to Morbid Obesity Malnutrition related to morbid obesity No Intervention/Recommendation Comments 1. Continue regular diet as ordered Expected Outcomes/Goals Expected Outcomes/Goals po intake >50% monitor wts, labs, skin, pO Intake
--- NOTE | 2017-09-04 19:31 | Discharge Summary ---
DATE OF DISCHARGE: 09/04/2017 JUSTIFICATION FOR HOSPITALIZATION: The patient is suicidal, tried to walk into traffic." HISTORY OF PRESENT ILLNESS: A 77-year-old male making some suicidal gestures at a [facility] talking about traditional religions and also paranoid and believing people were trying to harm him and suicidal, believing his son "dumped me." PAST PSYCHIATRIC HISTORY: Noted. SOCIAL HISTORY: Noted. Born in [place]. . Son involved. I spoke with son on the phone. MENTAL STATUS EXAMINATION: Please see full psych eval for details. PROVISIONAL DIAGNOSES: Schizophrenia and major depression, unspecified. PAST MEDICAL HISTORY: Please see full H and P. HOSPITAL COURSE: After initial assessment, the patient restarted his medications. Medications were adjusted, Cogentin, Risperdal. Over the course of the hospitalization, his mood improved and his affect improved. No longer paranoid, much calmer, cooperative, no longer talking about suicide. Son is very involved. Sleeping well and eating well. Staff noting robust improvement. CONDITION UPON DISCHARGE: Improved. Better ADLs, good eye contact. Speech is within normal limits, mildly forgetful. No SI, no HI, no intent, and no plan. No psychosis noted. He was engaged. MENTAL STATUS EXAMINATION: On exam, fairly well oriented. Better insight and judgment, hopeful and motivated, happy with progress being made by son for him to eventually get out of half-way facility and be more independent. DISCHARGE DIAGNOSES: 1. Schizophrenia, per history. 2. Mood, unspecified. 3. Anxiety, unspecified. MEDICAL: Please see full H and P. PROGNOSIS: The patient follows up with outpatient mental health services and remains compliant with treatment. Prognosis will improve, otherwise guarded. JOB# [id number]
[2017-09-05] MEDS: Pantoprazole 40 mg EC Tab PO SCH (06:39)
[2017-09-05] MEDS ORDERED: Benztropine 1 MG TAB PO SCH (07:30)
--- NOTE | 2017-09-05 08:27 | Progress Notes ---
DATE: The patient with history of schizophrenia per the patient and also per the patient's son, currently on low dose Risperdal, having some EPS this morning, given Benadryl, some mild tremors noted, we will add Cogentin to regimen. The patient has a safe discharge plan. He can be stepped down to a fpc facility. No SI, no HI, more oriented on exam, friendly and cooperative. ASSESSMENT: The patient with history of schizophrenia. No overt psychosis at this time. Seemingly improved. Some EPS noted on exam. Medication adjustments have been made over the past 24 hours, for example decrease of Risperdal and increase of Cogentin. JOB# [id number]
== END 2017-09-05 11:45 | DRG 885 ==
LOC: ER 15:23 → GERO 18:00
PROVIDERS: ADMIT Psychiatry & Neurology Psychiatry; ATTEND Psychiatry & Neurology Psychiatry
DX: F20.9 Schizophrenia, unspecified (principal); Z93.3 Colostomy status; F03.91 Unspecified dementia, unspecified severity, with behavioral disturbance; I48.91 Unspecified atrial fibrillation; R45.851 Suicidal ideations; I10 Essential (primary) hypertension; F39 Unspecified mood [affective] disorder; D64.9 Anemia, unspecified; E78.5 Hyperlipidemia, unspecified; F31.30 Bipolar disorder, current episode depressed, mild or moderate severity, unspecified; N40.0 Benign prostatic hyperplasia without lower urinary tract symptoms; Z85.038 Personal history of other malignant neoplasm of large intestine; Z90.49 Acquired absence of other specified parts of digestive tract; Z88.8 Allergy status to other drugs, medicaments and biological substances; Z86.73 Personal history of transient ischemic attack (TIA), and cerebral infarction without residual deficits; Z82.49 Family history of ischemic heart disease and other diseases of the circulatory system; Z83.3 Family history of diabetes mellitus
CPT/HCPCS: 36415-UA; 80053-TC; 80061-TC; 80307; 80320-TC; 80329-TC; 81001-TC; 83036-90; 84443-TC; 85025-TC; 86592-TC; 90899; 93005; G0410; J1200; Z7610